=== PATIENT | male | born 1950 | race Caucasian/White ===

== ENCOUNTER → 2018-12-03 | Outpatient (CLI) | payer MEDICARE, BC ==
--- NOTE | 2018-12-03 10:02 | RADIOLOGY REPORT (SQ) ---
EXAM DESCRIPTION: ANKLE RIGHT COMPLETE COMPLETED DATE/TIME: 12/03/2018 9:44 am REASON FOR STUDY: PAIN IN RIGHT ANKLE AND JOINTS OF RIGHT FOOT COMPARISON: None. NUMBER OF VIEWS: Three views right ankle. LIMITATIONS: None. FINDINGS: No fracture, subluxation or dislocation or effusion. OTHER: Regional vascular calcifications and mild ankle DJD. IMPRESSION: No acute radiographic abnormality. TECHNICAL DOCUMENTATION: JOB ID: [id number] Reading location - IP/workstation name: [email or web address]
== END ==
LOC: OD 09:21
PROVIDERS: ATTEND Internal Medicine
DX: M25.571 Pain in right ankle and joints of right foot (principal)

== ENCOUNTER → 2019-02-18 | Outpatient (CLI) | payer MEDICARE, BC ==
[2019-02-18 15:38] LABS: ABSOLUTE LYMPHOCYTES (AUTO) 0.9 10^3/uL (0.5-4.7); ABSOLUTE MONOCYTES (AUTO) 0.5 10^3/uL (0.1-1.4); ABSOLUTE NEUT (AUTO) 6.8 10^3/uL (1.7-8.2); BASOPHILS % (AUTO) 0.4 % (0-2); EOSINOPHILS % (AUTO) 0.4 % (0-6); HEMATOCRIT 30.5 % (37.9-51.0); HEMOGLOBIN 10.4 g/dL (13.5-17.0); LYMPHOCYTES % (AUTO) 11.3 % (13-45); MEAN CORPUSCULAR HEMOGLOBIN 29.3 pg (27.0-33.4); MEAN CORPUSCULAR VOLUME 86 fl (80-97); MONOCYTES % (AUTO) 6.4 % (3-13); PLATELET COUNT 215 10^3/uL (150-450); RED BLOOD COUNT 3.53 10^6/uL (4.35-5.55); RED CELL DISTRIBUTION WIDTH 13.9 % (11.5-14.0); SEGMENTED NEUTROPHILS % (AUTO) 81.5 % (42-78); TOTAL CELLS COUNTED % (AUTO) 100 %; WHITE BLOOD COUNT 8.3 10^3/uL (4.0-10.5)
[2019-02-18 15:53] LABS: APPEARANCE,URINE CLEAR; BILIRUBIN,URINE NEGATIVE (NEGATIVE); COLOR,URINE STRAW; GLUCOSE, URINE NEGATIVE (NEGATIVE); KETONES,URINE NEGATIVE (NEGATIVE); LEUKOCYTE ESTERASE,URINE SMALL (NEGATIVE); NITRITE,URINE NEGATIVE (NEGATIVE); PROTEIN,URINE NEGATIVE (NEGATIVE); URINE SPECIFIC GRAVITY 1.005; UROBILINOGEN,URINE NEGATIVE mg/dL (<2.0)
[2019-02-18 15:58] LABS: IRON(TIBC) 46.2 ug/dL (49-181)
[2019-02-18 16:01] LABS: ALANINE AMINOTRANSFERASE 21 U/L (21-72); ALBUMIN 3.3 g/dL (3.5-5.0); ALKALINE PHOSPHATASE 193 U/L (38-126); ASPARTATE AMINO TRANSFERASE 20 U/L (17-59); BILIRUBIN,DIRECT 0.3 mg/dL (0.0-0.4); BILIRUBIN,TOTAL 0.3 mg/dL (0.2-1.3); BLOOD UREA NITROGEN 77 mg/dL (7-20); CALCIUM 8.1 mg/dL (8.4-10.2); GLUCOSE 106 mg/dL (75-110); PHOSPHORUS 8.3 mg/dL (2.5-4.5); POTASSIUM 3.9 mmol/L (3.6-5.0); TOTAL PROTEIN 5.8 g/dL (6.3-8.2)
[2019-02-18 16:05] LABS: CARBON DIOXIDE 16 mmol/L (22-30); CHLORIDE 91 mmol/L (98-107); SODIUM 126.8 mmol/L (137-145)
[2019-02-18 16:11] LABS: ANION GAP 20 (5-19)
[2019-02-22 14:37] LABS: A/G RATIO 1.2 (0.7-1.7); ALBUMIN 2 3.2 g/dL (2.9-4.4); ALPHA-2-GLOBULIN 2 0.9 g/dL (0.4-1.0); BETA GLOBULINS 0.9 g/dL (0.7-1.3); GAMMA GLOBULIN 0.6 g/dL (0.4-1.8); GLOBULIN TOTAL 2.7 g/dL (2.2-3.9); MONOCLONAL SPIKE Not Observed g/dL (Not Observ); PROTEIN TOTAL SERUM 5.9 g/dL (6.0-8.5)
== END ==
LOC: OD 15:04
PROVIDERS: ATTEND Internal Medicine Nephrology
DX: N17.9 Acute kidney failure, unspecified (principal); D64.9 Anemia, unspecified; R60.9 Edema, unspecified; I50.9 Heart failure, unspecified
CPT/HCPCS: 36415; 80053; 81001; 82728; 83540; 83550; 83735; 83970; 84100; 84165; 84443; 85025

== ENCOUNTER → 2019-02-23 | Outpatient (CLI) | payer MEDICARE, BC ==
--- NOTE | 2019-02-23 12:54 | RADIOLOGY REPORT (SQ) ---
EXAM DESCRIPTION: U/S RETROPERITON (RENAL/AORTA) COMPLETED DATE/TIME: 02/23/2019 11:58 am REASON FOR STUDY: ACUTE KIDNEY FAILURE, UNSPECIFIED (N17.9) HTN (I10) N17.9 ACUTE KIDNEY FAILURE, U NSPECIFIED COMPARISON: 04/18/2012 TECHNIQUE: Dynamic and static grayscale images acquired of the kidneys and bladder and recorded on P ACS. Additional selected color Doppler and spectral images recorded. LIMITATIONS: None. FINDINGS: RIGHT KIDNEY: 12.4 cm. Mild hydronephrosis. No masses. No calcifications. LEFT KIDNEY: 11.7 cm. Mild hydronephrosis. No masses. No calcifications. BLADDER: [place] catheter is in place. OTHER FINDINGS: No other significant finding. IMPRESSION: Mild bilateral hydronephrosis. TECHNICAL DOCUMENTATION: JOB ID: [id number] [employer]- All Rights Reserved Reading location - IP/workstation name: [email or web address]
== END ==
LOC: RAD 11:04
PROVIDERS: ATTEND Internal Medicine Nephrology
DX: N17.9 Acute kidney failure, unspecified (principal); N13.30 Unspecified hydronephrosis
CPT/HCPCS: 76770

== ENCOUNTER → 2019-04-19 | Outpatient (CLI) | payer MEDICARE, BC ==
--- NOTE | 2019-04-22 10:05 | RADIOLOGY REPORT (SQ) ---
EXAM DESCRIPTION: PET CT SKULL/THIGH COMPLETED DATE/TIME: 04/19/2019 10:19 pm REASON FOR STUDY: (C61)MALIGNANT NEOPLASM OF PROSTATE C61 MALIGNANT NEOPLASM OF PROSTATE COMPARISON: None. RADIONUCLIDE AND DOSE: 11.82 mCi F18 FDG The route of agent administration: Intravenous FASTING BLOOD SUGAR: 106 mg/dl CONTRAST TYPE AND DOSE: No CT contrast given. TECHNIQUE: Blood glucose level was verified. Above dose of FDG was injected intravenously. 2-D seg mented attenuation correction images were obtained from the base of the skull to the midthighs. Nonc ontrast CT images were obtained for attenuation correction and fusion with emission images. CT image s were performed without oral or intravenous contrast and are not sensitive for parenchymal lesions. A series of overlapping emission PET images were obtained. Images reviewed and manipulated at [facility] work station by the radiologist. Images stored on PACS. LIMITATIONS: None. FINDINGS: HEAD AND NECK: No areas of abnormal metabolic activity in the soft tissues of the head and neck. CHEST: SUV is greater than 6 consistent with neoplasm. ABDOMEN AND PELVIS: No areas of abnormal metabolic activity in the abdomen or pelvis. Expected physi ologic activity is present in the genitourinary system and bowel. PROXIMAL LOWER EXTREMITIES: No areas of abnormal metabolic activity in the soft tissues of the lower extremities. BONES: There is abnormal uptake in the right and left iliac crest. SUV is as high as 11. There is a bnormal uptake in both right and left pubic bones with SUV as high as 8.5. There is uptake in the po sterior aspect of the 3rd thoracic vertebral body. SUV is measured 3.5. Metastatic disease is suspe cted. ADDITIONAL CT FINDINGS: No additional significant findings on the noncontrast CT images. OTHER: No other significant findings. IMPRESSION: Bony metastatic disease as described. No abnormal soft tissue activity. TECHNICAL DOCUMENTATION: JOB ID: [id number] [employer]- All Rights Reserved Reading location - IP/workstation name: [email or web address]
== END ==
LOC: RAD 18:43
PROVIDERS: ATTEND Internal Medicine Medical Oncology
DX: C61 Malignant neoplasm of prostate (principal)
CPT/HCPCS: 78815; A9552

== ENCOUNTER → 2019-09-24 | Outpatient (CLI) | payer MEDICARE, BC ==
[2019-09-24 12:46] LABS: ANION GAP 16 (5-19); BLOOD UREA NITROGEN 35 mg/dL (7-20); CALCIUM 9.3 mg/dL (8.4-10.2); CARBON DIOXIDE 23 mmol/L (22-30); CHLORIDE 101 mmol/L (98-107); GLUCOSE 119 mg/dL (75-110); POTASSIUM 4.7 mmol/L (3.6-5.0); URIC ACID 6.1 mg/dL (3.5-8.5)
== END ==
LOC: OD 11:41
PROVIDERS: ATTEND Internal Medicine
DX: N18.3 Chronic kidney disease, stage 3 (moderate) (principal); M10.9 Gout, unspecified
CPT/HCPCS: 36415; 80048; 84550

== ENCOUNTER 2019-10-02 15:29 | Emergency (ER) | payer MEDICARE, BC ==
--- NOTE | 2019-10-02 15:41 | ER Document Report ---
ED Medical Screen (RME) - General Chief Complaint: Leg Injury Stated Complaint: LEFT LEG/ANKLE PAIN SWELLING Time Seen by Provider: 10/02/19 15:37 Primary Care Provider: KWAME RYAN MD [Primary Care Provider] - Follow up as needed TRAVEL OUTSIDE OF THE [place] IN LAST 30 DAYS: No - HPI Notes: 10/02/19 15:40 Patient is a 68-year-old male with a history of prostate cancer with metastasis presents from radiology for evaluation here in the emergency department. Patient was told that he had some fractures to his tib-fib left leg that occurred when he was walking with a walker. The images are not read, but I did review them and it does show pathological fractures. Dr. Salinas wanted him evaluated here with possible consult with orthopedics to come up with a game plan. No fever, chest pain, abdominal pain. I have treated and performed a rapid initial assessment of this patient. A comprehensive ED assessment and evaluation of the patient, analysis of test results and completion of medical decision making process will be conducted by additional ED providers. PHYSICAL EXAMINATION: GENERAL: Well-appearing, well-nourished and in no acute distress. A&Ox4. Answers questions appropriately. Left lower leg: N/V intact distal. - Related Data Allergies/Adverse Reactions: Heparin Analogues [Heparin Agents] Allergy (Verified 10/02/19 15:35) unsure Past Medical History - Past Medical History Cardiac Medical History: Reports: Hx Coronary Artery Disease, Hx Heart Attack - x3, Hx Hypertension Pulmonary Medical History: Denies: Hx Asthma, Hx Bronchitis, Hx COPD, Hx Pneumonia Neurological Medical History: Denies: Hx Cerebrovascular Accident, Hx Seizures GI Medical History: Denies: Hx Hepatitis, Hx Hiatal Hernia, Hx Ulcer Musculoskeltal Medical History: Reports Hx Arthritis Infectious Medical History: Denies: Hx Hepatitis Past Surgical History: Reports: Hx Pacemaker. Denies: Hx Open Heart Surgery - Immunizations Hx Diphtheria, Pertussis, Tetanus Vaccination: Yes Physical Exam - Vital signs Vitals: Temp Pulse Resp BP Pulse Ox 98.6 F 60 18 133/51 H 100 10/02/19 15:34 10/02/19 15:34 10/02/19 15:34 10/02/19 15:34 10/02/19 15:34 Course - Vital Signs Vital signs: Temp Pulse Resp BP Pulse Ox 98.6 F 60 18 133/51 H 100 10/02/19 15:34 10/02/19 15:34 10/02/19 15:34 10/02/19 15:34 10/02/19 15:34 Doctor's Discharge - Discharge Referrals: KWAME RYAN MD [Primary Care Provider] - Follow up as needed
[2019-10-02 19:06] VITALS: BP 158/62
--- NOTE | 2019-10-12 15:41 | ER Document Report ---
Entered by ELMA NICHOLSON SCRIBE 10/02/19 1723 Acting as scribe for:ASHLY HERZOG IV, MD ED Extremity Problem, Lower - General Chief Complaint: Leg Injury Stated Complaint: LEFT LEG/ANKLE PAIN SWELLING Time Seen by Provider: 10/02/19 15:37 Primary Care Provider: KWAME RYAN MD [Primary Care Provider] - Follow up as needed ELIO SALINAS MD [ACTIVE STAFF] - 10/05/19 NOHEMY DURAN JR, DO [ACTIVE PROVISIONAL STAFF] - 10/05/19 (CALL TO SCHEDULE FOLLOW UP APPOINTMENT ON 10/05/2019) Information source: Patient, [facility] Records Notes: This 68 year old male patient with known prostate cancer and metastasis to bones in the pelvis and left lower extremity presents to the emergency today with complains of left lower extremity pain. Patient was walking out of a diner and he "heard a pop and felt a crack sensation" in his left lower extremity. Patient had outpatient x-rays of the loft lower extremity and his oncologist saw these films and instructed him to come to the ED for concern of pathologic tib/fib fracture. TRAVEL OUTSIDE OF THE [place] IN LAST 30 DAYS: No - Related Data Allergies/Adverse Reactions: Heparin Analogues [Heparin Agents] Allergy (Verified 10/02/19 15:35) unsure Past Medical History - General Information source: Patient - Social History Smoking Status: Smoker,Current Status Unk Frequency of alcohol use: None Drug Abuse: None Lives with: Family Family History: Reviewed & Not Pertinent Patient has suicidal ideation: No Patient has homicidal ideation: No - Past Medical History Cardiac Medical History: Reports: Hx Coronary Artery Disease, Hx Heart Attack - x3, Hx Hypertension Malignancy Medical History: Reports Hx Pancreatic Cancer Musculoskeletal Medical History: Reports Hx Arthritis Past Surgical History: Reports: Hx Pacemaker - Immunizations Hx Diphtheria, Pertussis, Tetanus Vaccination: Yes Review of Systems - Review of Systems Constitutional: No symptoms reported EENT: No symptoms reported Cardiovascular: No symptoms reported Respiratory: No symptoms reported Gastrointestinal: No symptoms reported Genitourinary: No symptoms reported Male Genitourinary: No symptoms reported Musculoskeletal: See HPI, Joint pain - LLE, Ankle swelling Skin: No symptoms reported Hematologic/Lymphatic: No symptoms reported Neurological/Psychological: No symptoms reported -: Yes All other systems reviewed and negative Physical Exam - Vital signs Vitals: Temp Pulse Resp BP Pulse Ox 98.6 F 60 18 133/51 H 100 10/02/19 15:34 10/02/19 15:34 10/02/19 15:34 10/02/19 15:34 10/02/19 15:34 Course - Vital Signs Vital signs: Temp Pulse Resp BP Pulse Ox 97.8 F 59 L 16 158/62 H 100 10/02/19 18:46 10/02/19 18:46 10/02/19 18:46 10/02/19 18:46 10/02/19 18:46 - Diagnostic Test Radiology reviewed: Reports reviewed - Consults DR. MICHAEL DURAN Time consulted: 17:33 - ORTHOPEDIST Reason for consultation: 10/02/19 17:58 LEFT DISTAL TIBIA AND FIBULA FX Consulted provider: follow-up in office dr. SALINAS Time consulted: 17:34 - pt's oncologist Reason for consultation: 10/02/19 18:01 Follow-up with Dr. Salinas about orthopedists decision to manage leg fracture. Consulted provider: follow-up in office Discharge - Discharge Clinical Impression: Closed fracture of left distal tibia Qualifiers: Encounter type: initial encounter Fracture morphology: unspecified fracture morphology Qualified Code(s): S82.302A - Unspecified fracture of lower end of left tibia, initial encounter for closed fracture Closed fracture of left distal fibula Qualifiers: Encounter type: initial encounter Fracture morphology: unspecified fracture morphology Qualified Code(s): S82.832A - Other fracture of upper and lower end of left fibula, initial encounter for closed fracture Condition: Good Disposition: HOME, SELF-CARE Additional Instructions: Return to the Emergency Department without delay if any worse. Fracture You have a fracture. The typical broken bone requires only protection and sufficient time for healing. "Setting" is necessary only if the bones are crooked or out of position. The physician will re-assess you periodically to make certain that the bone heals without complications. It's important that you follow the instructions given you. The initial treatment is immobilization, elevation of the injury, and cold packs. Not all fractures require a cast. Depending on the location and type of fracture, immobilization may consist of a splint, cast, sling, bulky dressing, o r simply rest. The length of time required for healing depends on the location and type of fracture, and on the age of the patient. The treatment plan the physician has outlined for you is customized to your fracture and health condition. Call the doctor or return at once if pain becomes severe, or if severe swelling or numbness develop. HOME CARE INSTRUCTIONS & INFORMATION: Thank you for choosing us for your medical needs. We hope you're satisfied with the care you received. After you leave, you must properly care for your problem and, at the same time, observe its progress. Any condition can change. Some illnesses can change rapidly over hours or days. If your condition worsens, return to the Emergency Department or see your physician promptly. ABOUT YOUR X-RAYS AND EKG'S: If you had an EKG or X-rays taken, they have been read by the Emergency Physician. The X-rays and EKG's will also be read by a Radiologist or Production Assembly Supervisor within 24 hours. If discrepancies are noted, you will be notified by telephone. Please be certain the ED has a correct telephone number & address where you can be reached. Also, realize that some fractures or abnormalities do not show up on initial X-rays. If your symptoms continue, see your physician. ABOUT YOUR LABORATORY TEST: If you had laboratory tests, the results have been reviewed by the Emergency Physician. Some test results (for example cultures) may not be available for several days. You will be contacted if any test result shows you need additional treatment. Please be certain the ED has a correct telephone number and address where you can be reached. ABOUT YOUR MEDICATIONS: You will receive instructions on how to take your medicine on the prescription label you receive. Additional information may be p rovided by the Pharmacy. If you have questions afterwards, call the ED for clarification or further instructions. Some prescribed medications may cause drowsiness. Do not perform tasks such as driving a car or operating machinery without consulting your Pharmacist. If you feel you need a refill of pain medication, your condition will need re-evaluation. Please do not call for a refill of any medication. ABOUT YOUR SIGNATURE: Signature of this document acknowledges to followin. Understanding that you received emergency treatment and that you may be released before al medical problems are known or treated. Please be certain the ED has a correct phone number & address where you can be reached. 2. Acknowledgement that you will arrange for follow-up care as recommended. 3. Authorization for the Emergency Physician to provide information to your follow-up Physician in order to maximize your care. AT ANY TIME, IF YOUR SYMPTOMS CHANGE SIGNIFICANTLY OR WORSEN OR YOU DEVELOP NEW SYMPTOMS, RETURN TO THE EMERGENCY DEPARTMENT IMMEDIATELY FOR RE-EVALUATION. OUR GOAL IS TO PROVIDE EXCELLENT MEDICAL CARE! WE HOPE THAT WE HAVE MET YOUR EXPECTATIONS DURING YOUR EMERGENCY DEPARTMENT VISIT AND THAT YOU FEEL YOU HAVE RECEIVED EXCELLENT CARE! Prescriptions: Wheelchair 1 each MC DAILY #1 each Referrals: KWAME RYAN MD [Primary Care Provider] - Follow up as needed NOHEMY DURAN JR, DO [ACTIVE PROVISIONAL STAFF] - 10/05/19 (CALL TO SCHEDULE FOLLOW UP APPOINTMENT ON 10/05/2019) ELIO SALINAS MD [ACTIVE STAFF] - 10/05/19 I personally performed the services described in the documentation, reviewed and edited the documentation which was dictated to the scribe in my presence, and it accurately records my words and actions.
== END 2019-10-02 19:06 | disposition home or self-care (01) ==
LOC: ER 15:29
DX: S82.302A Unspecified fracture of lower end of left tibia, initial encounter for closed fracture (principal); S82.832A Other fracture of upper and lower end of left fibula, initial encounter for closed fracture; X58.XXXA Exposure to other specified factors, initial encounter; I25.10 Atherosclerotic heart disease of native coronary artery without angina pectoris; I10 Essential (primary) hypertension; Z88.8 Allergy status to other drugs, medicaments and biological substances
CPT/HCPCS: 99283

== ENCOUNTER → 2019-10-02 | Outpatient (CLI) | payer MEDICARE, BC ==
--- NOTE | 2019-10-02 15:41 | RADIOLOGY REPORT (SQ) ---
EXAM DESCRIPTION: ANKLE LEFT COMPLETE COMPLETED DATE/TIME: 10/02/2019 3:16 pm REASON FOR STUDY: (M25.579)PAIN IN UNSPECIFIED ANKLE AND JOINTS OF UNSPECIFIED FOOT M25.579 PAIN IN UNSPECIFIED ANKLE AND JOINTS OF UNSPECIFIED COMPARISON: None. NUMBER OF VIEWS: Three views. TECHNIQUE: AP, lateral, and oblique radiographic images acquired of the left ankle. LIMITATIONS: None. FINDINGS: MINERALIZATION: Normal. BONES: Permeative appearance of the distal tibia and fibula with an incomplete fracture of the distal fibular diaphysis and a comminuted extra-articular fracture of the distal tibia. The ankle mortise and talar dome are intact. JOINTS: No effusions. SOFT TISSUES: Soft tissue swelling and vascular calcifications. OTHER: No other significant finding. IMPRESSION: Permeative appearance of the distal tibia and fibula with an incomplete fracture of the distal fibular diaphysis and a comminuted extra-articular fracture of the distal tibia. TECHNICAL DOCUMENTATION: JOB ID: [id number] [employer]- All Rights Reserved Reading location - IP/workstation name: [email or web address]
== END ==
LOC: RAD 14:57
PROVIDERS: ATTEND Internal Medicine
DX: S82.392A Other fracture of lower end of left tibia, initial encounter for closed fracture (principal); S82.832A Other fracture of upper and lower end of left fibula, initial encounter for closed fracture; X58.XXXA Exposure to other specified factors, initial encounter; M25.572 Pain in left ankle and joints of left foot

== ENCOUNTER → 2019-10-14 | Outpatient (CLI) | payer MEDICARE, BC ==
[2019-10-14 12:17] LABS: ABSOLUTE BASOPHILS # (AUTO) 0.1 10^3/uL (0.0-0.2); ABSOLUTE EOSINOPHILS # (AUTO) 0.1 10^3/uL (0.0-0.6); ABSOLUTE LYMPHOCYTES (AUTO) 1.3 10^3/uL (0.5-4.7); ABSOLUTE MONOCYTES (AUTO) 0.8 10^3/uL (0.1-1.4); ABSOLUTE NEUT (AUTO) 8.1 10^3/uL (1.7-8.2); BASOPHILS % (AUTO) 0.7 % (0-2); EOSINOPHILS % (AUTO) 0.6 % (0-6); HEMATOCRIT 25.6 % (37.9-51.0); HEMOGLOBIN 8.4 g/dL (13.5-17.0); LYMPHOCYTES % (AUTO) 12.5 % (13-45); MEAN CORPUSCULAR HEMOGLOBIN 27.3 pg (27.0-33.4); MEAN CORPUSCULAR HGB CONC 32.6 g/dL (32.0-36.0); MEAN CORPUSCULAR VOLUME 84 fl (80-97); MONOCYTES % (AUTO) 7.3 % (3-13); PLATELET COUNT 325 10^3/uL (150-450); RED BLOOD COUNT 3.06 10^6/uL (4.35-5.55); RED CELL DISTRIBUTION WIDTH 16.7 % (11.5-14.0); SEGMENTED NEUTROPHILS % (AUTO) 78.9 % (42-78); TOTAL CELLS COUNTED % (AUTO) 100 %; WHITE BLOOD COUNT 10.2 10^3/uL (4.0-10.5)
[2019-10-14 12:55] LABS: ALBUMIN 3.5 g/dL (3.5-5.0); ALKALINE PHOSPHATASE 321 U/L (38-126); ANION GAP 12 (5-19); ASPARTATE AMINO TRANSFERASE 46 U/L (17-59); BILIRUBIN,DIRECT 0.4 mg/dL (0.0-0.4); BILIRUBIN,TOTAL 0.4 mg/dL (0.2-1.3); BLOOD UREA NITROGEN 32 mg/dL (7-20); CALCIUM 9.6 mg/dL (8.4-10.2); CARBON DIOXIDE 23 mmol/L (22-30); CHLORIDE 103 mmol/L (98-107); GLUCOSE 93 mg/dL (75-110); POTASSIUM 5.6 mmol/L (3.6-5.0); TOTAL PROTEIN 6.8 g/dL (6.3-8.2)
== END ==
LOC: LAB 11:36
PROVIDERS: ATTEND Orthopaedic Surgery
DX: I10 Essential (primary) hypertension (principal); Z11.2 Encounter for screening for other bacterial diseases
CPT/HCPCS: 36415; 80053; 85025; 87070

== ENCOUNTER 2019-10-25 10:04 | Inpatient (IN) | payer MEDICARE, BC ==
[2019-10-25 10:57] LABS: HEMATOCRIT 25.4 % (37.9-51.0); HEMOGLOBIN 8.2 g/dL (13.5-17.0); MEAN CORPUSCULAR HEMOGLOBIN 27.3 pg (27.0-33.4); MEAN CORPUSCULAR HGB CONC 32.1 g/dL (32.0-36.0); MEAN CORPUSCULAR VOLUME 85 fl (80-97); PLATELET COUNT 302 10^3/uL (150-450); RED BLOOD COUNT 2.99 10^6/uL (4.35-5.55); RED CELL DISTRIBUTION WIDTH 17.5 % (11.5-14.0)
[2019-10-25 11:02] LABS: ALBUMIN 3.1 g/dL (3.5-5.0); ALKALINE PHOSPHATASE 241 U/L (38-126); ANION GAP 11 (5-19); ASPARTATE AMINO TRANSFERASE 37 U/L (17-59); BILIRUBIN,DIRECT 0.4 mg/dL (0.0-0.4); BILIRUBIN,TOTAL 0.4 mg/dL (0.2-1.3); BLOOD UREA NITROGEN 37 mg/dL (7-20); CARBON DIOXIDE 20 mmol/L (22-30); CHLORIDE 100 mmol/L (98-107); GLUCOSE 267 mg/dL (75-110); TOTAL PROTEIN 6.3 g/dL (6.3-8.2)
--- NOTE | 2019-10-25 11:04 | ER Document Report ---
ED General - General Chief Complaint: Decreased Appetite Stated Complaint: POSSIBLE DEHYDRATION Time Seen by Provider: 10/25/19 11:01 Mode of Arrival: Medic Information source: Patient, Relative Cannot obtain history due to: Altered mental status TRAVEL OUTSIDE OF THE [place] IN LAST 30 DAYS: No - HPI Onset: Other - over the last 1-2 days Onset/Duration: Gradual Quality of pain: No pain Severity: Moderate Pain Level: Denies Associated symptoms: Weakness, Other - decreased PO intake, altered mental status Exacerbated by: Denies Relieved by: Denies Similar symptoms previously: No Recently seen / treated by doctor: Yes - by his PCP Notes: 68 year old male with a history of Metastatic Prostate Cancer, HTN, HLD, Pacemaker/Defibrillator brought to the ER by EMS for altered mental status and concern of dehydration. The patient's family says the patient has been confused and not acting himself for the last 1-2 days. The patient says he has not been eating or drinking much since he has no appetite. The patient self caths due to his metastatic prostate cancer. - Related Data Allergies/Adverse Reactions: Heparin Analogues [Heparin Agents] Allergy (Verified 10/25/19 15:03) unsure meperidine [From Demerol] Allergy (Verified 10/25/19 15:03) Home Medications: Simvastatin 20mg QDay. Escitalopram 10mg QDay. Metoprolol ER 100 mg QDay. Docusate Sodium 100 mg QDay. Following medications being held for surgery. Last dose 10/23/19. CBD Capsule 750 mg QDay. Clopidogrel 75mg QDay Past Medical History - General Information source: Patient, Relative - Social History Smoking Status: Unknown if Ever Smoked Frequency of alcohol use: None Drug Abuse: None Lives with: Spouse/Significant other Family History: Reviewed & Not Pertinent Patient has suicidal ideation: No Patient has homicidal ideation: No - Past Medical History Cardiac Medical History: Reports: Hx Coronary Artery Disease, Hx Heart Attack - x3, Hx Hypertension Pulmonary Medical History: Denies: Hx Asthma, Hx Bronchitis, Hx COPD, Hx Pneumonia Neurological Medical History: Denies: Hx Cerebrovascular Accident, Hx Seizures Malignancy Medical History: Reports Hx Prostate Cancer GI Medical History: Denies: Hx Hepatitis, Hx Hiatal Hernia, Hx Ulcer Musculoskeletal Medical History: Reports Hx Arthritis Infectious Medical History: Denies: Hx Hepatitis Past Surgical History: Reports: Hx Pacemaker. Denies: Hx Open Heart Surgery - Immunizations Hx Diphtheria, Pertussis, Tetanus Vaccination: Yes Physical Exam - Vital signs Vitals: Resp 18 10/25/19 10:15 - Notes Notes: GENERAL: Well-appearing, well-nourished and in no acute distress. HEAD: Atraumatic, normocephalic. EYES: Pupils equal round and reactive to light, extraocular movements intact, sclera anicteric, conjunctiva are normal. ENT: TMs normal, nares patent, oropharynx clear without exudates. Moist mucous membranes. NECK: Normal range of motion, supple without lymphadenopathy or JVD. LUNGS: Breath sounds clear to auscultation bilaterally and equal. No wheezes rales or rhonchi. HEART: Regular rate and rhythm without murmurs, rubs or gallops. ABDOMEN: Soft, nontender, normoactive bowel sounds. No guarding, no rebound. No masses appreciated. EXTREMITIES: Normal range of motion, no pitting or edema. No clubbing or cyanosis. NEUROLOGICAL: Cranial nerves II through XII grossly intact. Normal speech, normal gait. PSYCH: Normal mood, normal affect. SKIN: Warm, Dry, normal turgor, no rashes or lesions noted. Course - Re-evaluation Re-evalutation: 10/25/19 18:38 The patient was found to be septic due to a UTI, in acute renal failure with hyperkalemia, and dehydrated. Patient was treated with fluids, IV Rocephin, IV Calcium Gluconate, IV Sodium Bicarbonate, IV Insulin. The patient also has known heart failure and his BNP was up today with no priors for comparison. Patient admitted to a Tele Bed for further treatment and care. His volume status will likely be an issue since he is septic but also has heart failure with some pulmonary edema. Patient was given nebs in the ER as well. The patient had several tachycardic events in the ER which were likely due to dehydration and IVONNE. I did give one dose of Metoprolol IV since he missed all of his BP meds today since he has been at the hospital. - Vital Signs Vital signs: Temp Pulse Resp BP Pulse Ox 99.3 F 16 103/54 L 94 10/25/19 16:33 10/25/19 18:16 10/25/19 18:16 10/25/19 18:16 - Laboratory Result Diagrams: 10/25/19 10:14 10/25/19 10:14 Laboratory results interpreted by me: 10/25/19 10/25/19 10/25/19 10:14 10:14 10:14 WBC 13.0 H RBC 2.99 L Hgb 8.2 L Hct 25.4 L RDW 17.5 H Seg Neuts % (Manual) 91 H Lymphocytes % (Manual) 5 L Abs Neuts (Manual) 11.8 H Sodium 131.2 L Potassium 6.1 H* Carbon Dioxide 20 L BUN 37 H Creatinine 2.53 H Est GFR ( Amer) 31 L Est GFR (MDRD) Non-Af 25 L Glucose 267 H POC Glucose Calcium 6.9 L* Ionized Calcium Julius Magnesium 3.8 H Alkaline Phosphatase 241 H NT-Pro-B Natriuret Pep Albumin 3.1 L Urine Protein Urine Glucose (UA) Urine Blood Ur Leukocyte Esterase Urine Ascorbic Acid 10/25/19 10/25/19 10/25/19 10:14 11:42 11:55 WBC RBC Hgb Hct RDW Seg Neuts % (Manual) Lymphocytes % (Manual) Abs Neuts (Manual) Sodium Potassium Carbon Dioxide BUN Creatinine Est GFR ( Amer) Est GFR (MDRD) Non-Af Glucose POC Glucose Calcium Ionized Calcium Julius 0.98 L Magnesium Alkaline Phosphatase NT-Pro-B Natriuret Pep 4150 H Albumin Urine Protein 100 H Urine Glucose (UA) 50 H Urine Blood LARGE H Ur Leukocyte Esterase LARGE H Urine Ascorbic Acid 20 H 10/25/19 12:37 WBC RBC Hgb Hct RDW Seg Neuts % (Manual) Lymphocytes % (Manual) Abs Neuts (Manual) Sodium Potassium Carbon Dioxide BUN Creatinine Est GFR ( Amer) Est GFR (MDRD) Non-Af Glucose POC Glucose 214 H Calcium Ionized Calcium Julius Magnesium Alkaline Phosphatase NT-Pro-B Natriuret Pep Albumin Urine Protein Urine Glucose (UA) Urine Blood Ur Leukocyte Esterase Urine Ascorbic Acid - EKG Interpretation by Me Rate: Normal [place]/QRS: Left axis deviation Additional EKG results interpreted by me: 10/25/19 18:45 Atrial Sensed, Ventricular Paced Critical Care Note - Critical Care Note Total time excluding time spent on procedures (mins): 55 Discharge - Discharge Clinical Impression: Sepsis Qualifiers: Sepsis type: sepsis due to unspecified organism Sepsis acute organ dysfunction status: without acute organ dysfunction Qualified Code(s): A41.9 - Sepsis, unspecified organism UTI (urinary tract infection) Qualifiers: Urinary tract infection type: site unspecified Hematuria presence: with hematuria Qualified Code(s): N39.0 - Urinary tract infection, site not specified Acute kidney failure Qualifiers: Acute renal failure type: unspecified Qualified Code(s): N17.9 - Acute kidney failure, unspecified Condition: Serious Disposition: ADMITTED INPATIENT Admitting Provider: Seth (Hospitalist) Unit Admitted: [facility]
[2019-10-25 11:12] LABS: CALCIUM 6.9 mg/dL (8.4-10.2)
[2019-10-25 11:13] LABS: POTASSIUM 6.1 mmol/L (3.6-5.0)
[2019-10-25 11:15] LABS: ABSOLUTE LYMPHOCYTES# (MANUAL) 0.7 10^3/uL (0.5-4.7); ABSOLUTE MONOCYTES # (MANUAL) 0.5 10^3/uL (0.1-1.4); BASOPHILS % (MANUAL) 0 % (0-2); EOSINOPHILS % (MANUAL) 0 % (0-6); LYMPHOCYTES % (MANUAL) 5 % (13-45); MONOCYTES % (MANUAL) 4 % (3-13); SEGMENTED NEUTROPHILS % (MAN) 91 % (42-78); TOTAL CELLS COUNTED 100
[2019-10-25 11:18] LABS: ANISOCYTOSIS 1+; OVALOCYTES SLIGHT; PLATELET COMMENT ADEQUATE; PLATELET LARGE PRESENT; POIKILOCYTOSIS SLIGHT; POLYCHROMASIA SLIGHT
[2019-10-25] MEDS ORDERED: NORMAL SALINE 1000 ML 1,000 ML IV ONE ×2 (11:29→15:45)
[2019-10-25] MEDS ORDERED: CALCIUM GLUCONATE 1000 MG/10 ML INJ IV ONE ×2 (11:31→14:02)
[2019-10-25 12:21] LABS: APPEARANCE,URINE TURBID; BILIRUBIN,URINE NEGATIVE (NEGATIVE); COLOR,URINE AMBER; GLUCOSE, URINE 50 mg/dL (NEGATIVE); KETONES,URINE NEGATIVE (NEGATIVE); LEUKOCYTE ESTERASE,URINE LARGE (NEGATIVE); NITRITE,URINE NEGATIVE (NEGATIVE); PROTEIN,URINE 100 mg/dL (NEGATIVE); URINE SPECIFIC GRAVITY 1.011; UROBILINOGEN,URINE NEGATIVE mg/dL (<2.0)
[2019-10-25] MEDS ORDERED: INSULIN REG, HUMAN 100 UNIT/ML 3 ML VIAL (PYX) SUBCUT ONE (12:33)
[2019-10-25] MEDS ORDERED: SODIUM BICARBONATE 8.4% INJ 50 MEQ/50 ML DISP.SYRIN IV ONE (12:33)
[2019-10-25] MEDS ORDERED: ADENOSINE INJ/PF 6 MG/2 ML SDV IV ONE (12:39)
[2019-10-25] MEDS ORDERED: METOPROLOL TARTRATE PF/INJ 5 MG/5 ML SDV IV ONE ×2 (12:42)
[2019-10-25] MEDS ORDERED: CEFTRIAXONE INJ 1000 MG VIAL IV ONE (12:43)
[2019-10-25] MEDS ORDERED: ACETAMINOPHEN 325 MG TABLET PO ONE ×2 (12:46→15:45)
--- NOTE | 2019-10-25 13:36 | RADIOLOGY REPORT (SQ) ---
EXAM DESCRIPTION: CHEST SINGLE VIEW COMPLETED DATE/TIME: 10/25/2019 1:23 pm REASON FOR STUDY: Shortness of breath COMPARISON: 04/30/2010. EXAM PARAMETERS: NUMBER OF VIEWS: One view. TECHNIQUE: Single frontal radiographic view of the chest acquired. RADIATION DOSE: NA LIMITATIONS: None. FINDINGS: LUNGS AND PLEURA: Faint hazy appearance of both lungs. No large pleural effusion. MEDIASTINUM AND HILAR STRUCTURES: No masses. Contour normal. HEART AND VASCULAR STRUCTURES: Mild cardiomegaly. Mild vascular congestion. BONES: No acute findings. HARDWARE: Pacemaker. OTHER: No other significant finding. IMPRESSION: MILD CARDIOMEGALY WITH MILD VASCULAR CONGESTION. FAINT HAZY APPEARANCE OF BOTH LUNGS MA Y REPRESENT EARLY PULMONARY EDEMA. TECHNICAL DOCUMENTATION: JOB ID: [id number] [employer]- All Rights Reserved Reading location - IP/workstation name: [email or web address]
--- NOTE | 2019-10-25 13:53 | PDOC H&P ---
History of Present Illness Admission Date/PCP: 10/25/19 13:15 KWAME SANDOVAL MD History of Present Illness: MADI RAYMOND is a 68 year old male with past medical history of CAD, CHF stat us post pacemaker placement, hypertension, stage IV prostatic cancer diagnosed in January 2019, seen by Dr. Salinas as outpatient, obstructive uropathy due to complication of prostate cancer status post bilateral ureteral stent placement by Dr. Kruse at [facility], CKD seen by Dr. Hilton eradicator, PCP Dr. Sandoval. Patient lives at home with his family and is doing intermittent catheterization at home for his obstructive uropathy, used to have Dacosta but removed it to improve his quality of life, patient is alert oriented x2 however seems to be very weak and preferred for his family to provide history. As per daughter and were present at the room patient has being having low appetite and refusing to eat or drink for the last 3 days and has been complaining of generalized weakness and malaise, today was seen to be well but confused and patient was brought to ED. Denies any shortness of breath, chest pain, abdominal pain, nausea, vomiting, diarrhea when asked if he is in pain he points to the right flank. In ED he was found to have leukocytosis and noted to have a positive UA. Was started on fluid resuscitation and consulted hospitalist. Past Medical History Cardiac Medical History: Reports: Coronary Artery Disease, Myocardial Infarction - x3, Hypertension Pulmonary Medical History: Denies: Asthma, Bronchitis, Chronic Obstructive Pulmonary Disease (COPD), Pneumonia Neurological Medical History: Denies: Seizures Malignancy Medical History: Reports: Pancreatic Cancer GI Medical History: Denies: Hepatitis, Hiatal Hernia Musculoskeltal Medical History: Reports: Arthritis Hematology: Reports: Anemia Denies: Sickle Cell Disease Past Surgical History Past Surgical History: Reports: Pacemaker Social History Lives with: Spouse/Significant other Smoking Status: Unknown if Ever Smoked Family History Family History: Reviewed & Not Pertinent Parental Family History Reviewed: Yes Children Family History Reviewed: Yes Sibling(s) Family History Reviewed.: Yes Medication/Allergy Allergies/Adverse Reactions: Heparin Analogues [Heparin Agents] Allergy (Verified 10/02/19 15:35) unsure Review of Systems Review of Systems: as per hpi Physical Exam Vital Signs: Temp Pulse Resp BP Pulse Ox 99.4 F 23 H 150/57 H 99 10/25/19 10:40 10/25/19 11:00 10/25/19 11:01 10/25/19 12:00 Intake & Output 10/24/19 10/25/19 10/26/19 06:59 06:59 06:59 Intake Total 1000 Balance 1000 Weight 76.7 kg General appearance: PRESENT: mild distress Head exam: PRESENT: atraumatic, normocephalic Neck exam: ABSENT: carotid bruit, JVD, lymphadenopathy, thyromegaly Respiratory exam: PRESENT: clear to auscultation riky. ABSENT: rales, rhonchi, wheezes Cardiovascular exam: PRESENT: RRR, tachycardia. ABSENT: diastolic murmur, rubs, systolic murmur GI/Abdominal exam: PRESENT: normal bowel sounds, soft. ABSENT: distended, guarding, mass, organolmegaly, rebound, tenderness Neurological exam: PRESENT: alert, awake, oriented to person, oriented to place, oriented to time, oriented to situation, CN II-XII grossly intact. ABSENT: motor sensory deficit Results Laboratory Results: 10/25/19 10:14 10/25/19 10:14 10/25/19 10/25/19 10/25/19 10:14 10:14 10:14 WBC 13.0 H RBC 2.99 L Hgb 8.2 L Hct 25.4 L MCV 85 MCH 27.3 MCHC 32.1 RDW 17.5 H Plt Count 302 Seg Neutrophils % Not Reportable Sodium 131.2 L Potassium 6.1 H* Chloride 100 Carbon Dioxide 20 L Anion Gap 11 BUN 37 H Creatinine 2.53 H Est GFR ( Amer) 31 L Glucose 267 H Lactic Acid Calcium 6.9 L* Ionized Calcium Julius Magnesium 3.8 H Total Bilirubin 0.4 AST 37 Alkaline Phosphatase 241 H Total Protein 6.3 Albumin 3.1 L Urine Color Urine Appearance Urine pH Ur Specific [place] Urine Protein Urine Glucose (UA) Urine Ketones Urine Blood Urine Nitrite Ur Leukocyte Esterase Urine WBC (Auto) Urine RBC (Auto) 10/25/19 10/25/19 10/25/19 11:42 11:42 11:55 WBC RBC Hgb Hct MCV MCH MCHC RDW Plt Count Seg Neutrophils % Sodium Potassium Chloride Carbon Dioxide Anion Gap BUN Creatinine Est GFR ( Amer) Glucose Lactic Acid 1.4 Calcium Ionized Calcium Julius 0.98 L Magnesium Total Bilirubin AST Alkaline Phosphatase Total Protein Albumin Urine Color CARLEE Urine Appearance TURBID Urine pH 7.0 Ur Specific [place] 1.011 Urine Protein 100 H Urine Glucose (UA) 50 H Urine Ketones NEGATIVE Urine Blood LARGE H Urine Nitrite NEGATIVE Ur Leukocyte Esterase LARGE H Urine WBC (Auto) >182 Urine RBC (Auto) >182 Impressions: Chest X-Ray 10/25/19 13:15 IMPRESSION: MILD CARDIOMEGALY WITH MILD VASCULAR CONGESTION. FAINT HAZY APPEARANCE OF BOTH LUNGS MAY REPRESENT EARLY PULMONARY EDEMA. Assessment and Plan - Diagnosis (1) UTI (urinary tract infection) Qualifiers: Urinary tract infection type: site unspecified Hematuria presence: with hematuria Qualified Code(s): N39.0 - Urinary tract infection, site not sp ecified; R31.9 - Hematuria, unspecified Is this a current diagnosis for this admission?: Yes (2) Acute kidney injury superimposed on CKD Is this a current diagnosis for this admission?: Yes Plan: Combined pre-and post renal. Patient has been having low p.o. intake due to anorexia. Cautious volume resuscitation guided by volume status.. Monitor electrolytes and replace as needed. CT abdomen pelvis to check patency of the ureteral stents. Daily BMP. (3) Obstructive uropathy Is this a current diagnosis for this admission?: Yes Plan: Complicated UTI history of obstructive uropathy due to metastatic prostate cancer status post bilateral renal stent placement. Managed by Dr. Kruse urologist at [facility]. We will get CT abdomen and pelvis to check for patency. We will place Dacosta cath. Continue Dacosta care. Outpatient urology follow-up. (4) Prostate cancer Is this a current diagnosis for this admission?: Yes Plan: Stage IV prostate cancer. On chemo and radiation managed by Dr. Salinas as outpatient. (5) CAD (coronary artery disease) Qualifiers: Coronary Disease-Associated Artery/Lesion type: [place] artery Is this a current diagnosis for this admission?: Yes Plan: Denies any anginal symptoms. Restart home meds. Adjust meds as needed. Outpatient PCP and cardiology follow-up. (6) CHF (congestive heart failure) Qualifiers: Heart failure type: combined systolic and diastolic Heart failure chronicity: chronic Qualified Code(s): I50.42 - Chronic combined systolic (congestive) and diastolic (congestive) heart failure Is this a current diagnosis for this admission?: Yes Plan: Does not seem to be acutely exacerbated. Patient presenting with dehydration. Cardiac diet, monitor in and out, restart home meds. (7) Anorexia Is this a current diagnosis for this admission?: Yes Plan: Likely combination of IVONNE, metastatic cancer and chemotherapy. Encourage p.o. intake, will start on appetite stimulant. Monitor electrolytes and volume status. (8) Hypertension Is this a current diagnosis for this admission?: Yes Plan: Restart home meds. Adjust meds as needed. PRN IV hydralazine metoprolol. (9) Hyperkalemia Is this a current diagnosis for this admission?: Yes Plan: Likely due to IVONNE for CKD. Hyperkalemia protocol. No acute EKG changes. (10) Hypocalcemia Is this a current diagnosis for this admission?: Yes Plan: Replace as needed.
[2019-10-25] MEDS ORDERED: NORMAL SALINE 1000 ML 1,000 ML IV PRN (13:57)
[2019-10-25] MEDS ORDERED: ONDANSETRON HCL INJ/PF 4 MG/2 ML SDV IV PRN (13:57)
[2019-10-25] MEDS ORDERED: PROMETHAZINE HCL INJ 25 MG/1 ML VIAL IV PRN (13:57)
[2019-10-25] MEDS ORDERED: ALBUTEROL SULFATE 0.083% NEB 2.5 MG/3 ML AMPUL NEB PRN (13:57)
[2019-10-25] MEDS ORDERED: IPRATROPIUM/ALBUTEROL 0.5-2.5 MG/3 ML AMPUL NEB ONE (14:00)
[2019-10-25] MEDS ORDERED: HYDRALAZINE HCL INJ/PF 20 MG/1 ML SDV IV PRN (14:03)
[2019-10-25] MEDS ORDERED: METOPROLOL TARTRATE PF/INJ 5 MG/5 ML SDV IV PRN (14:03)
[2019-10-25] MEDS ORDERED: DEXTROSE 50%-WATER 25 GM/50 ML DISP.SYRIN IV PRN ×2 (14:04)
[2019-10-25] MEDS ORDERED: DEXTROSE 40% GEL 15 GM TUBE PO PRN ×2 (14:04)
[2019-10-25] MEDS ORDERED: OXYCODONE-ACETAMINOPHEN 5-325 MG TABLET PO PRN (14:04)
[2019-10-25] MEDS ORDERED: GLUCAGON,HUMAN RECOMB 1 MG INJ IM PRN (14:04)
[2019-10-25] MEDS ORDERED: SODIUM POLYSTYRENE SULFONATE 15 GM/60 ML PO ONE (14:45)
[2019-10-25] MEDS: CALCIUM GLUCONATE 1 GM/NS 50 ML RTU IV SCH ×2 (15:28→17:06)
[2019-10-25] MEDS: IPRATROPIUM/ALBUTEROL 0.5-2.5 MG/3 ML AMPUL NEB SCH ×2 (16:16→20:57)
[2019-10-25] MEDS: INSULIN LISPRO 100 UNIT/ML 3 ML VIAL SUBCUT SCH ×2 (16:17→21:48)
[2019-10-25 16:37] LABS: A TYPE INFLUENZA AG NEGATIVE (NEGATIVE); B INFLUENZA AG NEGATIVE (NEGATIVE)
[2019-10-25] MEDS ORDERED: DOPAMINE HCL/DEXTROSE 5%-WATER 800 MG/250 ML RTUINJ IV ONE (16:39)
[2019-10-25] MEDS ORDERED: RINGERS SOLUTION,LACTATED 1,000 ML IV ONE ×2 (16:40→18:20)
[2019-10-25] MEDS ORDERED: RINGERS SOLUTION,LACTATED 1,000 ML IV PRN ×2 (17:07→18:37)
[2019-10-25] MEDS ORDERED: DEXTROSE 5%-WATER 250 ML with PHENYLEPHRINE HCL 40 MG IV PRN ×2 (17:39)
[2019-10-25] MEDS: MEGESTROL ACETATE SUSP 400 MG/10 ML UDCUP PO SCH (17:46)
--- NOTE | 2019-10-25 17:51 | CRITICAL CARE ADMISSION REPORT ---
HPI Date:: 10/25/19 - Critical Care Attending Time:: 17:41 Reason for ICU Reason:: septic shock,complicated UTI, IVONNE HPI: Pt is a 68 yo man with metastatic prostate cancer who presents to the ED c/o a several day history of decreased oral intake. He has a h/o obstructive uropathy, s/p bilateral ureteral stents,and does intermittent self-catheterization. In the ED, he was found to be hypotensive with an SBP in the 70s. He was found to have a UTI, IVONNE, and hyperkalemia. He was treated for the hyperkalemia, given IVF, and started on ATBX. He was also started on dopamine. Upon my evaluation in the ED, he is tachycardic with a pulse in the 160s and has an SBP in the 120s on dopamine. He c/o nausea. His and children are at the bedside. - Diagnosis/Plan (1) Septic shock Is this a current diagnosis for this admission?: Yes (2) Complicated UTI (urinary tract infection) Is this a current diagnosis for this admission?: Yes (3) Prostate cancer Is this a current diagnosis for this admission?: Yes (4) Obstructive uropathy Is this a current diagnosis for this admission?: Yes (5) Acute kidney failure Qualifiers: Acute renal failure type: unspecified Qualified Code(s): N17.9 - Acute kidney failure, unspecified Is this a current diagnosis for this admission?: Yes Past Medical History Cardiac Medical History: Reports: Congestive Heart Failure, Coronary Artery Disease, Myocardial Infarction - x3, Hypertension Pulmonary Medical History: Denies: Asthma, Bronchitis, Chronic Obstructive Pulmonary Disease (COPD), P [place] Neurological Medical History: Denies: Seizures Malignancy Medical History: Reports: Pancreatic Cancer GI Medical History: Denies: Hepatitis, Hiatal Hernia Musculoskeltal Medical History: Reports: Arthritis Hematology: Reports: Anemia Denies: Sickle Cell Disease Past Surgical History Past Surgical History: Reports: Pacemaker Social/Family History - Social History Lives with: Spouse/Significant other Smoking Status: Unknown if Ever Smoked - Medication/Allergies Home Medications: Cannabidiol (Cbd) [Epidiolex] 750 mg PO DAILY 10/25/19 Clopidogrel Bisulfate [Plavix 75 mg Tablet] 75 mg PO DAILY 10/25/19 Docusate Sodium [Stool Softener] 100 mg PO DAILY 10/25/19 Escitalopram Oxalate [Lexapro 10 mg Tablet] 10 mg PO DAILY 10/25/19 Metoprolol Succinate [Toprol Xl] 100 mg PO DAILY 10/25/19 Oxycodone HCl [Oxy-Ir 5 mg Tablet] 10 mg PO Q4HP PRN 10/25/19 Oxycodone HCl [Oxycontin Sr 10 mg Tablet] 10 mg PO Q12 10/25/19 Simvastatin 20 mg PO DAILY 10/25/19 Allergies/Adverse Reactions: Heparin Analogues [Heparin Agents] Allergy (Verified 10/25/19 15:03) unsure meperidine [From Demerol] Allergy (Verified 10/25/19 15:03) Physical Exam Vital Signs: Temp Pulse Resp BP Pulse Ox 99.3 F 16 74/42 L 96 10/25/19 16:33 10/25/19 16:15 10/25/19 16:33 10/25/19 15:59 Intake & Output 10/24/19 10/25/19 10/26/19 06:59 06:59 06:59 Intake Total 2380 Output Total 250 Balance 2130 Weight 76.7 kg Weight/Height Weight 76.7 kg Height 5 ft 10 in General appearance: PRESENT: no acute distress, well-developed, well-nourished, other - ill-appearing, NAD Head exam: PRESENT: atraumatic, normocephalic Respiratory exam: PRESENT: clear to auscultation riky, unlabored Cardiovascular exam: PRESENT: tachycardia GI/Abdominal exam: PRESENT: soft Gentrourinary exam: PRESENT: indwelling catheter Extremities exam: PRESENT: other - no edema Neurological exam: PRESENT: alert, awake, CN II-XII grossly intact Laboratory/Radiographs Laboratory Results: 10/25/19 10:14 10/25/19 10:14 10/25/19 10/25/19 10/25/19 10:14 10:14 10:14 WBC 13.0 H RBC 2.99 L Hgb 8.2 L Hct 25.4 L MCV 85 MCH 27.3 MCHC 32.1 RDW 17.5 H Plt Count 302 Seg Neutrophils % Not Reportable Sodium 131.2 L Potassium 6.1 H* Chloride 100 Carbon Dioxide 20 L Anion Gap 11 BUN 37 H Creatinine 2.53 H Est GFR ( Amer) 31 L Glucose 267 H Lactic Acid Calcium 6.9 L* Ionized Calcium Julius Magnesium 3.8 H Total Bilirubin 0.4 AST 37 Alkaline Phosphatase 241 H Total Protein 6.3 Albumin 3.1 L Urine Color Urine Appearance Urine pH Ur Specific [place] Urine Protein Urine Glucose (UA) Urine Ketones Urine Blood Urine Nitrite Ur Leukocyte Esterase Urine WBC (Auto) Urine RBC (Auto) 10/25/19 10/25/19 10/25/19 11:42 11:42 11:55 WBC RBC Hgb Hct MCV MCH MCHC RDW Plt Count Seg Neutrophils % Sodium Potassium Chloride Carbon Dioxide Anion Gap BUN Creatinine Est GFR ( Amer) Glucose Lactic Acid 1.4 Calcium Ionized Calcium Julius 0.98 L Magnesium Total Bilirubin AST Alkaline Phosphatase Total Protein Albumin Urine Color CARLEE Urine Appearance TURBID Urine pH 7.0 Ur Specific [place] 1.011 Urine Protein 100 H Urine Glucose (UA) 50 H Urine Ketones NEGATIVE Urine Blood LARGE H Urine Nitrite NEGATIVE Ur Leukocyte Esterase LARGE H Urine WBC (Auto) >182 Urine RBC (Auto) >182 10/25/19 10:14 NT-Pro-B Natriuret Pep 4150 H Impressions: Chest X-Ray 10/25/19 13:15 IMPRESSION: MILD CARDIOMEGALY WITH MILD VASCULAR CONGESTION. FAINT HAZY APPEARANCE OF BOTH LUNGS MAY REPRESENT EARLY PULMONARY EDEMA. EKG: [ST] . SINUS TACHYCARDIA [LVHPRE] . PROBABLE LVH WITH SECONDARY REPOL ABNRM [AMI17] . ANTERIOR Q WAVES, POSSIBLY DUE TO LVH [REPPWI] . REPOL ABNRM, PROBABLE ISCHEMIA, DIFFUSE LEADS Critical Time Critical Time (minutes): 50 -: The care of a critically ill patient is dynamic. This note represents a static moment in the admission process. Orders and treatments may be given simultaneously and urgently, and time is not telephone service representative of the treatment process. This patient requires Critical Care secondary to life threatening organ or limb dysfunction. Without Critical Care services, the patient is at risk for increased mortality and morbidity. Provider Note Provider Note: Assessment: critically ill 68 yo man with septic shock, complicated UTI, obstructive uropathy, metastatic prostate cancer, h/o bilateral ureterl stents, IVONNE, CKD, hyperkalemia Plan: 1. Respiratory: stable on nasal cannula. Monitor respiratory status closely 2. CV: hypotension due to septic shock. Tachycardia. Will give more boluses of IVF. Will d/c dopamine and start neosynephrine 3. Renal/Uro: IVONNE, CKD, h/o obstructive uropathy s/p bilateral ureteral stents, prostate cancer. Continue IVF. CT abdomen and pelvis ordered. Hyperkalemia, treated in the ED. Repeat BMP. 4. ID: septic shock. Complicated UTI. Start cefepime. Cultures pending 5. Nutritioin: NPO 6. Endocrine: monitor blood sugars 7. Prophylaxis: scds. No heparin products due to heparin allergy. Arixtra contraindicated due to IVONNE 8. Family at bedside. Updated on pt condition and plan of care Critical care time = 50 min, excluding procedures
[2019-10-25] MEDS ORDERED: CEFEPIME 1 GM/D5W RTU 1 GM/50 ML RTUPB IV SCH (18:00)
[2019-10-25] MEDS ORDERED: IMIPENEM/CILASTATIN SODIUM 500 MG in NORMAL SALINE 100 ML IV SCH ×4 (18:00)
[2019-10-25] MEDS ORDERED: DOPAMINE HCL 800 MG/D5W 250 ML IV PRN (18:43)
--- NOTE | 2019-10-25 19:31 | RADIOLOGY REPORT (SQ) ---
EXAM DESCRIPTION: CT ABD/PELVIS NO ORAL OR IV COMPLETED DATE/TIME: 10/25/2019 7:01 pm REASON FOR STUDY: r/o pyelo, check of ureteral stents patency COMPARISON: None. TECHNIQUE: CT scan of the abdomen and pelvis performed without intravenous or oral contrast. Images reviewed with lung, soft tissue, and bone windows. Reconstructed coronal and sagittal MPR images revi ewed. All images stored on PACS. All CT scanners at this facility use dose modulation, iterative reconstruction, and/or weight based d osing when appropriate to reduce radiation dose to as low as reasonably achievable (ALARA). [facility]: Dose Right [facility]: CareDose [facility]: Dose Right [facility]: Teradose 4D [facility]: Smart Sleepy's RADIATION DOSE: CT Rad equipment meets quality standard of care and radiation dose reduction techniq ues were employed. CTDIvol: 10.4 mGy. DLP: 549 mGy-cm.mGy. LIMITATIONS: None. FINDINGS: LOWER CHEST: Interstitial thickening and ground-glass opacification. NON-CONTRASTED LIVER, SPLEEN, ADRENALS: Evaluation limited by lack of IV contrast. Hepatomegaly. At rophic pancreas. PANCREAS: No masses. No peripancreatic inflammatory changes. GALLBLADDER: Surgically absent. RIGHT KIDNEY AND URETER: No suspicious masses. Assessment limited by lack of IV contrast. No signif icant calcifications. Ureteral stent proximally located within the renal pelvis and distally located within the urinary bladder. Mild dilation of the renal pelvis. No hydroureter. Mild perinephric f at stranding, more so than the contralateral left side. LEFT KIDNEY AND URETER: Atrophic. No suspicious masses. Assessment limited by lack of IV contrast. No significant calcifications. Ureteral stent proximally located within the renal pelvis and distal ly located within the urinary bladder. No hydronephrosis or hydroureter. Mild perinephric fat stran ding. AORTA AND RETROPERITONEUM: Heavy calcified atherosclerosis. No aneurysm. No retroperitoneal masses o r adenopathy. BOWEL AND PERITONEAL CAVITY: 1.8 cm peripherally calcific mesenteric lesion within the anterior right lower abdomen, possibly representing a lymph node or sequela from prior inflammatory process. No ob vious inflammatory changes. No free fluid. APPENDIX: Surgically absent. PELVIS, BLADDER, AND ABDOMINAL WALL:No abnormal masses. No free fluid. Decompressed urinary bladder with Dacosta catheter placement. BONES: Metastatic sclerotic lesions throughout the axial skeleton within the proximal femurs. Pathol ogic fractures of the pubic rami. OTHER: Anasarca. Mildly prominent bilateral inguinal lymph nodes. IMPRESSION: Normal positioning of bilateral ureteral stents. Dilation of the right renal pelvis and mild asymmetrically increased right perinephric fat stranding, findings which may indicate a degree of ureteral stent obstruction. Perinephric fat stranding may also be seen with acute pyelonephritis, although evaluation is limited due to lack of intravenous contrast. Numerous osseous metastatic lesions with age-indeterminate pubic rami pathologic fractures. Bibasilar interstitial thickening and ground-glass opacification compatible with pulmonary edema. Anasarca. COMMENT: Quality ID # [id number]: Final reports with documentation of one or more dose reduction techniques (e.g., Automated exposure control, adjustment of the mA and/or kV according to patient size, use of iterative reconstruction technique) TECHNICAL DOCUMENTATION: JOB ID: [id number] [employer]- All Rights Reserved Reading location - IP/workstation name: [email or web address]
[2019-10-25] MEDS: DOCUSATE SODIUM 100 MG CAPSULE PO SCH (19:33)
[2019-10-25 20:29] LABS: ANION GAP 12 (5-19); BLOOD UREA NITROGEN 41 mg/dL (7-20); CARBON DIOXIDE 18 mmol/L (22-30); CHLORIDE 104 mmol/L (98-107); GLUCOSE 216 mg/dL (75-110); POTASSIUM 5.2 mmol/L (3.6-5.0)
[2019-10-25 20:43] LABS: CALCIUM 6.9 mg/dL (8.4-10.2)
[2019-10-25] MEDS: CEFEPIME 1 GM/D5W RTU 1 GM/50 ML RTUPB IV SCH (21:40)
[2019-10-25] MEDS ORDERED: FAMOTIDINE 20 MG TABLET PO SCH (22:00)
[2019-10-26] MEDS ORDERED: OXYCODONE HCL IR 5 MG TABLET PO PRN ×2 (00:20→08:07)
--- NOTE | 2019-10-26 00:21 | EKG REPORT ---
SEVERITY:- ABNORMAL ECG - ATRIAL-SENSED VENTRICULAR-PACED RHYTHM : Confirmed by: Yuliya Chauhan 26-Oct-2019 00:20:55
--- NOTE | 2019-10-26 00:21 | EKG REPORT ---
SEVERITY:- ABNORMAL ECG - SINUS TACHYCARDIA PROBABLE LVH WITH SECONDARY REPOL ABNRM ANTERIOR Q WAVES, POSSIBLY DUE TO LVH REPOL ABNRM, PROBABLE ISCHEMIA, DIFFUSE LEADS : Confirmed by: Yuliya Chauhan 26-Oct-2019 00:20:35
[2019-10-26] MEDS ORDERED: OXYCODONE HCL SR 10 MG TABLET PO ONE (01:15)
[2019-10-26] MEDS ORDERED: RINGERS SOLUTION,LACTATED 1,000 ML IV ONE (01:25)
[2019-10-26 04:30] LABS: ABSOLUTE BASOPHILS # (AUTO) 0.1 10^3/uL (0.0-0.2); ABSOLUTE MONOCYTES (AUTO) 0.9 10^3/uL (0.1-1.4); ABSOLUTE NEUT (AUTO) 13.7 10^3/uL (1.7-8.2); BASOPHILS % (AUTO) 0.4 % (0-2); HEMATOCRIT 24.1 % (37.9-51.0); LYMPHOCYTES % (AUTO) 6.1 % (13-45); MEAN CORPUSCULAR HEMOGLOBIN 26.8 pg (27.0-33.4); MEAN CORPUSCULAR HGB CONC 31.4 g/dL (32.0-36.0); MEAN CORPUSCULAR VOLUME 85 fl (80-97); MONOCYTES % (AUTO) 5.8 % (3-13); PLATELET COUNT 274 10^3/uL (150-450); RED BLOOD COUNT 2.83 10^6/uL (4.35-5.55); RED CELL DISTRIBUTION WIDTH 17.3 % (11.5-14.0); SEGMENTED NEUTROPHILS % (AUTO) 87.7 % (42-78); TOTAL CELLS COUNTED % (AUTO) 100 %; WHITE BLOOD COUNT 15.6 10^3/uL (4.0-10.5)
[2019-10-26 04:31] LABS: HEMOGLOBIN 7.6 g/dL (13.5-17.0)
[2019-10-26 04:38] LABS: INTERNATIONAL RATION (INR) 1.44; PROTHROMBIN TIME 17.7 SEC (11.4-15.4)
[2019-10-26 04:54] LABS: ALBUMIN 2.7 g/dL (3.5-5.0); ALKALINE PHOSPHATASE 191 U/L (38-126); ANION GAP 10 (5-19); ASPARTATE AMINO TRANSFERASE 46 U/L (17-59); BILIRUBIN,DIRECT 0.1 mg/dL (0.0-0.4); BILIRUBIN,TOTAL 0.2 mg/dL (0.2-1.3); BLOOD UREA NITROGEN 42 mg/dL (7-20); CARBON DIOXIDE 20 mmol/L (22-30); CHLORIDE 104 mmol/L (98-107); GLUCOSE 195 mg/dL (75-110); POTASSIUM 5.5 mmol/L (3.6-5.0); TOTAL PROTEIN 5.4 g/dL (6.3-8.2)
[2019-10-26] MEDS ORDERED: DIPHENHYDRAMINE HCL 25 MG CAPSULE PO PRN (05:00)
[2019-10-26] MEDS ORDERED: ACETAMINOPHEN 325 MG TABLET PO PRN (05:00)
[2019-10-26 05:11] LABS: CALCIUM 6.7 mg/dL (8.4-10.2)
--- NOTE | 2019-10-26 07:48 | PDOC CONSULTATION ---
Consultation Consult Date: 10/26/19 Attending physician:: OTILIO HERMOSILLO Provider Consulted: ELIO LORA Consult reason:: Patient with stage IV prostate cancer well-known to our oncology office History of Present Illness Admission Date/PCP: 10/25/19 13:15 KWAME RYAN MD Patient complains of: Weakness, dehydration History of Present Illness: MADI RAYMOND is a 68 year old male with known history of stage IV prostate cancer, recently transferred his care from Dr. Mensah who closed her office, he was found to have progressive disease over the last 1 month, rising PSA as well as increased bone disease. He had been on androgen deprivation therapy in the past but it been sometime since he received that therapy, we restarted about 2 weeks ago. He received a Lupron shot. He was supposed to start on the oral antiandrogen agent Xtandi, but unfortunately the co-pay was very high so we are trying to get him co-pay assistance. So he had not received the drug yet. He comes in with hypotension, weakness was found to have UTI, CT of the abdomen pelvis done which showed some perinephric stranding consistent with a pyelonephritis type picture, but the ureteral stents seem appropriate and in place. He was on pressors, thus he was given hydration in the ICU, he is doing better now, off pressors. But his hemoglobin dropped to 7.6. And his urine output was poor overnight. Past Medical History Cardiac Medical History: Reports: Congestive Heart Failure, Coronary Artery Disease, Myocardial Infarction - x3, Hypertension Pulmonary Medical History: Denies: Asthma, Bronchitis, Chronic Obstructive Pulmonary Disease (COPD), Pneumonia Neurological Medical History: Denies: Seizures Malignancy Medical History: Reports: Other - Stage IV prostate cancer GI Medical History: Denies: Hepatitis, Hiatal Hernia Musculoskeltal Medical History: Reports: Arthritis Hematology: Reports: Anemia Denies: Sickle Cell Disease Past Surgical History Past Surgical History: Reports: Pacemaker Social History Information Source: Patient Lives with: Spouse/Significant other Smoking Status: Unknown if Ever Smoked Electronic Cigarette use?: No Frequency of Alcohol Use: None Hx Recreational Drug Use: No Hx Prescription Drug Abuse: No - Advance Directive Resuscitation Status: Full Code Family History Family History: Reviewed & Not Pertinent Parental Family History Reviewed: Yes Children Family History Reviewed: Yes Sibling(s) Family History Reviewed.: Yes Medication/Allergy Home Medications: Cannabidiol (Cbd) [Epidiolex] 750 mg PO DAILY 10/25/19 Clopidogrel Bisulfate [Plavix 75 mg Tablet] 75 mg PO DAILY 10/25/19 Docusate Sodium [Stool Softener] 100 mg PO DAILY 10/25/19 Escitalopram Oxalate [Lexapro 10 mg Tablet] 10 mg PO DAILY 10/25/19 Metoprolol Succinate [Toprol Xl] 100 mg PO DAILY 10/25/19 Oxycodone HCl [Oxy-Ir 5 mg Tablet] 10 mg PO Q4HP PRN 10/25/19 Oxycodone HCl [Oxycontin Sr 10 mg Tablet] 10 mg PO Q12 10/25/19 Simvastatin 20 mg PO DAILY 10/25/19 Allergies/Adverse Reactions: Heparin Analogues [Heparin Agents] Allergy (Verified 10/25/19 15:03) unsure meperidine [From Demerol] Allergy (Verified 10/25/19 15:03) Review of Systems Constitutional: ABSENT: chills, fever(s), headache(s), weight gain, weight loss Eyes: ABSENT: visual disturbances Ears: ABSENT: hearing changes Cardiovascular: ABSENT: chest pain, dyspnea on exertion, edema, orthropnea, palpitations Respiratory: ABSENT: cough, hemoptysis Gastrointestinal: ABSENT: abdominal pain, constipation, diarrhea, hematemesis, hematochezia, nausea, vomiting Genitourinary: ABSENT: dysuria, hematuria Musculoskeletal: ABSENT: joint swelling Integumentary: ABSENT: rash, wounds Neurological: ABSENT: abnormal gait, abnormal speech, confusion, dizziness, focal weakness, syncope Psychiatric: ABSENT: anxiety, depression, homidical ideation, suicidal ideation Endocrine: ABSENT: cold intolerance, heat intolerance, polydipsia, polyuria Hematologic/Lymphatic: ABSENT: easy bleeding, easy bruising Physical Exam Vital Signs: Temp Pulse Resp BP Pulse Ox 98.3 F 78 12 113/51 L 100 10/26/19 04:00 10/25/19 18:12 10/26/19 06:12 10/26/19 06:12 10/26/19 06:12 Intake & Output 10/25/19 10/26/19 10/27/19 06:59 06:59 06:59 Intake Total 5837 Output Total 395 Balance 5442 Weight 79.1 kg General appearance: PRESENT: no acute distress, well-developed, well-nourished Head exam: PRESENT: atraumatic, normocephalic Eye exam: PRESENT: conjunctiva pink, EOMI, PERRLA. ABSENT: scleral icterus Ear exam: PRESENT: normal external ear exam Mouth exam: PRESENT: moist, tongue midline Neck exam: ABSENT: carotid bruit, JVD, lymphadenopathy, thyromegaly Respiratory exam: PRESENT: clear to auscultation riky. ABSENT: rales, rhonchi, wheezes Cardiovascular exam: PRESENT: RRR. ABSENT: diastolic murmur, rubs, systolic murmur Pulses: PRESENT: normal dorsalis pedis pul Vascular exam: PRESENT: normal capillary refill GI/Abdominal exam: PRESENT: normal bowel sounds, soft. ABSENT: distended, guarding, mass, organolmegaly, rebound, tenderness Rectal exam: PRESENT: deferred Extremities exam: PRESENT: full ROM. ABSENT: calf tenderness, clubbing, pedal edema Neurological exam: PRESENT: alert, awake, oriented to person, oriented to place, oriented to time, oriented to situation, CN II-XII grossly intact. ABSENT: motor sensory deficit Psychiatric exam: PRESENT: appropriate affect, normal mood. ABSENT: homicidal ideation, suicidal ideation Skin exam: PRESENT: dry, intact, warm. ABSENT: cyanosis, rash Results Laboratory Results: 10/26/19 03:53 10/26/19 03:53 10/25/19 10/25/19 10/25/19 10:14 10:14 10:14 WBC 13.0 H RBC 2.99 L Hgb 8.2 L Hct 25.4 L MCV 85 MCH 27.3 MCHC 32.1 RDW 17.5 H Plt Count 302 Seg Neutrophils % Not Reportable Sodium 131.2 L Potassium 6.1 H* Chloride 100 Carbon Dioxide 20 L Anion Gap 11 BUN 37 H Creatinine 2.53 H Est GFR ( Amer) 31 L Glucose 267 H Lactic Acid Calcium 6.9 L* Ionized Calcium Julius Magnesium 3.8 H Total Bilirubin 0.4 AST 37 Alkaline Phosphatase 241 H Total Protein 6.3 Albumin 3.1 L Urine Color Urine Appearance Urine pH Ur Specific [place] Urine Protein Urine Glucose (UA) Urine Ketones Urine Blood Urine Nitrite Ur Leukocyte Esterase Urine WBC (Auto) Urine RBC (Auto) 10/25/19 10/25/19 10/25/19 11:42 11:42 11:55 WBC RBC Hgb Hct MCV MCH MCHC RDW Plt Count Seg Neutrophils % Sodium Potassium Chloride Carbon Dioxide Anion Gap BUN Creatinine Est GFR ( Amer) Glucose Lactic Acid 1.4 Calcium Ionized Calcium Julius 0.98 L Magnesium Total Bilirubin AST Alkaline Phosphatase Total Protein Albumin Urine Color CARLEE Urine Appearance TURBID Urine pH 7.0 Ur Specific [place] 1.011 Urine Protein 100 H Urine Glucose (UA) 50 H Urine Ketones NEGATIVE Urine Blood LARGE H Urine Nitrite NEGATIVE Ur Leukocyte Esterase LARGE H Urine WBC (Auto) >182 Urine RBC (Auto) >182 10/25/19 10/25/19 10/26/19 19:51 19:51 03:53 WBC 15.6 H RBC 2.83 L Hgb 7.6 L Hct 24.1 L MCV 85 MCH 26.8 L MCHC 31.4 L RDW 17.3 H Plt Count 274 Seg Neutrophils % 87.7 H Sodium 133.7 L Potassium 5.2 H Chloride 104 Carbon Dioxide 18 L Anion Gap 12 BUN 41 H Creatinine 2.77 H Est GFR ( Amer) 28 L Glucose 216 H Lactic Acid Calcium 6.9 L* Ionized Calcium Julius Magnesium 3.4 H Total Bilirubin AST Alkaline Phosphatase Total Protein Albumin 2.5 L Urine Color Urine Appearance Urine pH Ur Specific [place] Urine Protein Urine Glucose (UA) Urine Ketones Urine Blood Urine Nitrite Ur Leukocyte Esterase Urine WBC (Auto) Urine RBC (Auto) 10/26/19 03:53 WBC RBC Hgb Hct MCV MCH MCHC RDW Plt Count Seg Neutrophils % Sodium 133.6 L Potassium 5.5 H Chloride 104 Carbon Dioxide 20 L Anion Gap 10 BUN 42 H Creatinine 3.01 H Est GFR ( Amer) 25 L Glucose 195 H Lactic Acid Calcium 6.7 L* Ionized Calcium Julius Magnesium 3.4 H Total Bilirubin 0.2 AST 46 Alkaline Phosphatase 191 H Total Protein 5.4 L Albumin 2.7 L Urine Color Urine Appearance Urine pH Ur Specific [place] Urine Protein Urine Glucose (UA) Urine Ketones Urine Blood Urine Nitrite Ur Leukocyte Esterase Urine WBC (Auto) Urine RBC (Auto) 10/25/19 10:14 NT-Pro-B Natriuret Pep 4150 H Impressions: Chest X-Ray 10/25/19 13:15 IMPRESSION: MILD CARDIOMEGALY WITH MILD VASCULAR CONGESTION. FAINT HAZY APPEARANCE OF BOTH LUNGS MAY REPRESENT EARLY PULMONARY EDEMA. Abdomen/Pelvis CT 10/25/19 18:20 IMPRESSION: Normal positioning of bilateral ureteral stents. Dilation of the right renal pelvis and mild asymmetrically increased right perinephric fat stranding, findings which may indicate a degree of ureteral stent obstruction. Perinephric fat stranding may also be seen with acute pyelonephritis, although evaluation is limited due to lack of intravenous contrast. Numerous osseous metastatic lesions with age-indeterminate pubic rami pathologic fractures. Bibasilar interstitial thickening and ground-glass opacification compatible with pulmonary edema. Anasarca. Status: Image reviewed by me Assessment & Plan - Diagnosis (1) Prostate cancer Is this a current diagnosis for this admission?: Yes Plan: Stage IV prostate cancer with bone metastasis, has sustained a left ankle fracture because of that, he is not able to bear weight because of that. He will continue on androgen deprivation therapy. Hopefully we will be able to get him Xtandi soon and he can start on that. (2) Anemia Qualifiers: Anemia type: other cause Other causes of anemia: chronic disease, neoplastic Qualified Code(s): D63.0 - Anemia in neoplastic disease Is this a current diagnosis for this admission?: Yes Plan: I will add iron studies to his labs. He seems intravascularly depleted so I will give him 1 unit of blood. But most likely this is an anemia of chronic disease. As he has an element of anemia of chronic kidney disease but also prostate cancer involvement in the pelvic bones causing anemia. (3) Pain, neoplasm-related Is this a current diagnosis for this admission?: Yes Plan: Related to bone metastasis, increase oxycodone and OxyContin. - Time Time Spent: Greater than 70 Minutes
[2019-10-26] MEDS ORDERED: FONDAPARINUX SODIUM INJ 2.5 MG/0.5 ML DISP.SYRIN SUBCUT SCH (08:00)
[2019-10-26] MEDS ORDERED: OXYCODONE HCL SR 10 MG TABLET PO PRN (08:08)
[2019-10-26] MEDS: IPRATROPIUM/ALBUTEROL 0.5-2.5 MG/3 ML AMPUL NEB SCH ×4 (08:41→20:18)
[2019-10-26 08:52] LABS: ABSOLUTE RETICS # 0.088 10^6/uL (0.028-0.122); RETICULOCYTE COUNT (AUTO) 3.08 % (0.66-2.85)
[2019-10-26] MEDS: INSULIN LISPRO 100 UNIT/ML 3 ML VIAL SUBCUT SCH ×4 (09:34→21:43)
[2019-10-26] MEDS: MEGESTROL ACETATE SUSP 400 MG/10 ML UDCUP PO SCH (09:35)
[2019-10-26] MEDS: CEFEPIME 1 GM/D5W RTU 1 GM/50 ML RTUPB IV SCH ×2 (09:36→21:45)
[2019-10-26] MEDS: DOCUSATE SODIUM 100 MG CAPSULE PO SCH ×2 (09:36→17:49)
[2019-10-26] MEDS ORDERED: DOCUSATE SODIUM 100 MG CAPSULE PO SCH (10:00)
[2019-10-26] MEDS ORDERED: CANNABIDIOL PO SCH (10:00)
[2019-10-26] MEDS ORDERED: OXYCODONE HCL SR 10 MG TABLET PO SCH (10:00)
[2019-10-26] MEDS ORDERED: CLOPIDOGREL BISULFATE 75 MG TABLET PO SCH (10:00)
[2019-10-26] MEDS ORDERED: INFLUENZA QUAD (6MOS+) 2019-20 VAC 0.5 ML SYR IM ONE (10:00)
[2019-10-26] MEDS ORDERED: (PENDING PHARMACY ID) (Simvastatin [Simvastatin] 20 MG) PO SCH (10:00)
[2019-10-26] MEDS: OXYCODONE HCL SR 10 MG TABLET PO SCH ×2 (12:01→21:44)
[2019-10-26] MEDS: METOPROLOL SUCCINATE 50 MG TAB.SR.24H PO SCH (12:01)
[2019-10-26] MEDS: ESCITALOPRAM OXALATE 10 MG TABLET PO SCH (12:01)
[2019-10-26] MEDS: OXYCODONE HCL IR 5 MG TABLET PO PRN (15:06)
[2019-10-26] MEDS ORDERED: CALCIUM GLUCONATE 1000 MG/10 ML INJ IV ONE (17:11)
--- NOTE | 2019-10-26 17:41 | PDOC PROGRESS REPORT ---
Subjective Progress Note for:: 10/26/19 Subjective:: MADI RAYMOND is a 68 year old male with past medical history of CAD, CHF status post pacemaker placement, hypertension, stage IV prostatic cancer diagnosed in January 2019, seen by Dr. Salinas as outpatient, obstructive uropathy due to complication of prostate cancer status post bilateral ureteral stent placement by Dr. Kruse at [facility], CKD seen by Dr. Hilton pattern hand, PCP Dr. Sandoval. Patient lives at home with his family and is doing intermittent catheterization at home for his obstructive uropathy, used to have Dacosta but removed it to improve his quality of life, patient is alert oriented x2 however seems to be very weak and preferred for his family to provide history. As per daughter and were present at the room patient has being having low appetite and refusing to eat or drink for the last 3 days and has been complaining of generalized weakness and malaise, today was seen to be well but confused and patient was brought to ED. Denies any shortness of breath, chest pain, abdominal pain, nausea, vomiting, diarrhea when asked if he is in pain he points to the right flank. In ED he was found to have leukocytosis and noted to have a positive UA. Was started on fluid resuscitation and consulted hospitalist. 10/26/2019. Yesterday evening after admission to floor patient was noted to become more hypotensive, executive administrator was consulted and patient was transferred to ICU for septic shock. In ICU he was pressors and weaned off this morning. Patient transferred to floor was able to see patient this afternoon comfortably resting in bed in no apparent distress, complaining of back and lower extremity pain, appetite has improved, alert and oriented and cooperative with physical examination. Denies any fever, chills, nausea, vomiting, diarrhea, abdominal pain or constipation. Reason For Visit: UTI,IVONNE,HYPOCALCEMIA,HYPERKALEMIA Physical Exam Vital Signs: Temp Pulse Resp BP Pulse Ox 97.9 F 70 16 120/53 L 99 10/26/19 17:00 10/26/19 17:00 10/26/19 17:00 10/26/19 17:00 10/26/19 17:00 Intake & Output 10/25/19 10/26/19 10/27/19 06:59 06:59 06:59 Intake Total 5837 806 Output Total 395 55 Balance 5442 751 Weight 79.1 kg General appearance: PRESENT: no acute distress, well-developed, well-nourished Head exam: PRESENT: atraumatic, normocephalic Respiratory exam: PRESENT: clear to auscultation riky. ABSENT: rales, rhonchi, wheezes Cardiovascular exam: PRESENT: RRR. ABSENT: diastolic murmur, rubs, systolic murmur GI/Abdominal exam: PRESENT: normal bowel sounds, soft. ABSENT: distended, guarding, mass, organolmegaly, rebound, tenderness Musculoskeletal exam: PRESENT: tenderness - Right lower extremity tenderness. Neurological exam: PRESENT: alert, awake, oriented to person, oriented to place, CN II-XII grossly intact. ABSENT: motor sensory deficit Skin exam: PRESENT: dry, intact, warm. ABSENT: cyanosis, rash Results Laboratory Results: 10/26/19 03:53 10/26/19 03:53 10/25/19 10/25/19 10/26/19 19:51 19:51 03:53 WBC 15.6 H RBC 2.83 L Hgb 7.6 L Hct 24.1 L MCV 85 MCH 26.8 L MCHC 31.4 L RDW 17.3 H Plt Count 274 Seg Neutrophils % 87.7 H Retic Count (auto) Sodium 133.7 L Potassium 5.2 H Chloride 104 Carbon Dioxide 18 L Anion Gap 12 BUN 41 H Creatinine 2.77 H Est GFR ( Amer) 28 L Glucose 216 H Calcium 6.9 L* Ionized Calcium Julius Magnesium 3.4 H Iron TIBC % Saturation Ferritin Total Bilirubin AST Alkaline Phosphatase Total Protein Albumin 2.5 L Vitamin B12 Folate Blood Type Antibody Screen 10/26/19 10/26/19 10/26/19 03:53 03:53 03:53 WBC RBC Hgb Hct MCV MCH MCHC RDW Plt Count Seg Neutrophils % Retic Count (auto) 3.08 H Sodium 133.6 L Potassium 5.5 H Chloride 104 Carbon Dioxide 20 L Anion Gap 10 BUN 42 H Creatinine 3.01 H Est GFR ( Amer) 25 L Glucose 195 H Calcium 6.7 L* Ionized Calcium Julius Magnesium 3.4 H Iron 16.0 L TIBC 188 L % Saturation 9 Ferritin 502.00 H Total Bilirubin 0.2 AST 46 Alkaline Phosphatase 191 H Total Protein 5.4 L Albumin 2.7 L Vitamin B12 > 1000.0 H Folate 10.70 Blood Type Antibody Screen 10/26/19 10/26/19 08:30 13:10 WBC RBC Hgb Hct MCV MCH MCHC RDW Plt Count Seg Neutrophils % Retic Count (auto) Sodium Potassium Chloride Carbon Dioxide Anion Gap BUN Creatinine Est GFR ( Amer) Glucose Calcium Ionized Calcium Julius 0.85 L Magnesium Iron TIBC % Saturation Ferritin Total Bilirubin AST Alkaline Phosphatase Total Protein Albumin Vitamin B12 Folate Blood Type B POSITIVE Antibody Screen NEGATIVE 10/25/19 11:42 Blood Blood Culture (PCR) - Final Escherichia Coli 10/25/19 12:40 Blood Blood Culture (PCR) - Final Escherichia Coli 10/25/19 10:14 NT-Pro-B Natriuret Pep 4150 H Impressions: Chest X-Ray 10/25/19 13:15 IMPRESSION: MILD CARDIOMEGALY WITH MILD VASCULAR CONGESTION. FAINT HAZY APPEARANCE OF BOTH LUNGS MAY REPRESENT EARLY PULMONARY EDEMA. Abdomen/Pelvis CT 10/25/19 18:20 IMPRESSION: Normal positioning of bilateral ureteral stents. Dilation of the right renal pelvis and mild asymmetrically increased right perinephric fat stranding, findings which may indicate a degree of ureteral stent obstruction. Perinephric fat stranding may also be seen with acute pyelonephritis, although evaluation is limited due to lack of intravenous contrast. Numerous osseous metastatic lesions with age-indeterminate pubic rami pathologic fractures. Bibasilar interstitial thickening and ground-glass opacification compatible with pulmonary edema. Anasarca. Assessment and Plan - Diagnosis (1) UTI (urinary tract infection) Qualifiers: Urinary tract infection type: site unspecified Hematuria presence: with hematuria Qualified Code(s): N39.0 - Urinary tract infection, site not specified; R31.9 - Hematuria, unspecified Is this a current diagnosis for this admission?: Yes Plan: Complicated UTI history of obstructive uropathy due to metastatic prostate cancer status post bilateral renal stent placement. CT abdomen pelvis positive for possible pyelonephritis. Urine culture from admission growing gram-negative rods. Pending sensitivity. Day 2 IV antibiotics. Day 1 IV cefepime. Received 1 day of IV ceftriaxone. Continue empiric IV antibiotics. Follow-up urine culture. Follow-up sensi tivity. (2) Septic shock Is this a current diagnosis for this admission?: Yes Plan: Resolved. Vitals WNL. Most likely likely due to gram-negative rods likely E. coli, likely source urine. Blood culture on admission growing non-ESBL E. coli pending sensitivity. Day 2 IV antibiotics. Day 1 IV cefepime. Received 1 day of IV ceftriaxone. Continue empiric IV antibiotics. Follow-up culture and sensitivity. Repeat blood culture. (3) Acute kidney injury superimposed on CKD Is this a current diagnosis for this admission?: Yes Plan: Nonoliguric. Urine output increasing. Combined pre-and post renal. Patient has been having low p.o. intake due to anorexia. CT abdomen shows patency of ureteral stents. No obstruction. Continue cautious volume resuscitation guided by volume status. Monitor electrolytes and replace as needed. Consult nephrology. (4) Obstructive uropathy Is this a current diagnosis for this admission?: Yes Plan: Complicated UTI history of obstructive uropathy due to metastatic prostate cancer status post bilateral renal stent placement. Managed by Dr. Kruse urologist at [facility]. CT abdomen and pelvis shows bilateral ureteral stents patent. Dacosta cath in place. Continue Dacosta care. Outpatient urology follow-up. (5) Prostate cancer Is this a current diagnosis for this admission?: Yes Plan: Stage IV prostate cancer. On chemo and radiation managed by Dr. Salinas as outpatient. (6) CAD (coronary artery disease) Qualifiers: Coronary Disease-Associated Artery/Lesion type: [place] artery Is this a current diagnosis for this admission?: Yes Plan: Denies any anginal symptoms. Restart home meds. Adjust meds as needed. Outpatient PCP and cardiology follow-up. (7) CHF (congestive heart failure) Qualifiers: Heart failure type: combined systolic and diastolic Heart failure chronicity: chronic Qualified Code(s): I50.42 - Chronic combined systolic (congestive) and diastolic (congestive) heart failure Is this a current diagnosis for this admission?: Yes Plan: Does not seem to be acutely exacerbated. Patient presenting with dehydration. Cardiac diet, monitor in and out, restart home meds. (8) Anorexia Is this a current diagnosis for this admission?: Yes Plan: Improving. Will start on metabolic oncology. Likely combination of IVONNE, metastatic cancer and chemotherapy. Encourage p.o. intake, will start on appetite stimulant. Monitor electrolytes and volume status. (9) Hypertension Is this a current diagnosis for this admission?: Yes Plan: Restart home meds. Adjust meds as needed. PRN IV hydralazine metoprolol. (10) Hyperkalemia Is this a current diagnosis for this admission?: Yes Plan: Likely due to IVONNE for CKD. Hyperkalemia protocol. No acute EKG changes. (11) Hypocalcemia Is this a current diagnosis for this admission?: Yes Plan: Replace as needed. Calcium level tomorrow.
[2019-10-26] MEDS ORDERED: SODIUM POLYSTYRENE SULFONATE 15 GM/60 ML PO ONE (18:00)
[2019-10-26] MEDS: CALCIUM GLUCONATE 1 GM/NS 50 ML RTU IV SCH ×2 (19:59→21:44)
[2019-10-26 21:22] LABS: HEMATOCRIT 27.8 % (37.9-51.0); HEMOGLOBIN 9.1 g/dL (13.5-17.0); MEAN CORPUSCULAR HEMOGLOBIN 27.6 pg (27.0-33.4); MEAN CORPUSCULAR HGB CONC 32.7 g/dL (32.0-36.0); MEAN CORPUSCULAR VOLUME 85 fl (80-97); PLATELET COUNT 244 10^3/uL (150-450); RED BLOOD COUNT 3.29 10^6/uL (4.35-5.55); RED CELL DISTRIBUTION WIDTH 17.4 % (11.5-14.0); WHITE BLOOD COUNT 14.7 10^3/uL (4.0-10.5)
[2019-10-26 21:23] LABS: ABSOLUTE LYMPHOCYTES (AUTO) 0.8 10^3/uL (0.5-4.7); ABSOLUTE MONOCYTES (AUTO) 0.9 10^3/uL (0.1-1.4); BASOPHILS % (AUTO) 0.2 % (0-2); EOSINOPHILS % (AUTO) 0.1 % (0-6); LYMPHOCYTES % (AUTO) 5.4 % (13-45); MONOCYTES % (AUTO) 6.2 % (3-13); SEGMENTED NEUTROPHILS % (AUTO) 88.1 % (42-78); TOTAL CELLS COUNTED % (AUTO) 100 %
[2019-10-26] MEDS: SIMVASTATIN 10 MG TABLET PO SCH (21:45)
[2019-10-26] MEDS: TEMAZEPAM 7.5 MG CAPSULE PO PRN (21:46)
[2019-10-27] MEDS: OXYCODONE HCL IR 5 MG TABLET PO PRN (06:08)
[2019-10-27 06:15] LABS: ABSOLUTE BASOPHILS # (AUTO) 0.1 10^3/uL (0.0-0.2); ABSOLUTE LYMPHOCYTES (AUTO) 0.9 10^3/uL (0.5-4.7); ABSOLUTE NEUT (AUTO) 12.2 10^3/uL (1.7-8.2); BASOPHILS % (AUTO) 0.4 % (0-2); EOSINOPHILS % (AUTO) 0.1 % (0-6); HEMATOCRIT 26.5 % (37.9-51.0); HEMOGLOBIN 8.7 g/dL (13.5-17.0); LYMPHOCYTES % (AUTO) 6.1 % (13-45); MEAN CORPUSCULAR HEMOGLOBIN 27.5 pg (27.0-33.4); MEAN CORPUSCULAR HGB CONC 32.7 g/dL (32.0-36.0); MEAN CORPUSCULAR VOLUME 84 fl (80-97); MONOCYTES % (AUTO) 7.3 % (3-13); PLATELET COUNT 209 10^3/uL (150-450); RED BLOOD COUNT 3.15 10^6/uL (4.35-5.55); SEGMENTED NEUTROPHILS % (AUTO) 86.1 % (42-78); TOTAL CELLS COUNTED % (AUTO) 100 %; WHITE BLOOD COUNT 14.1 10^3/uL (4.0-10.5)
[2019-10-27 06:37] LABS: ALBUMIN 2.7 g/dL (3.5-5.0); ALKALINE PHOSPHATASE 178 U/L (38-126); ANION GAP 11 (5-19); ASPARTATE AMINO TRANSFERASE 40 U/L (17-59); BILIRUBIN,DIRECT 0.5 mg/dL (0.0-0.4); BILIRUBIN,TOTAL 0.5 mg/dL (0.2-1.3); BLOOD UREA NITROGEN 52 mg/dL (7-20); CARBON DIOXIDE 20 mmol/L (22-30); CHLORIDE 102 mmol/L (98-107); GLUCOSE 107 mg/dL (75-110); POTASSIUM 5.3 mmol/L (3.6-5.0); TOTAL PROTEIN 5.7 g/dL (6.3-8.2)
[2019-10-27 06:48] LABS: CALCIUM 6.6 mg/dL (8.4-10.2)
[2019-10-27] MEDS ORDERED: CALCIUM GLUCONATE 1 GM/NS 50 ML RTU IV ONE (07:00)
[2019-10-27] MEDS: INSULIN LISPRO 100 UNIT/ML 3 ML VIAL SUBCUT SCH ×4 (07:44→22:05)
[2019-10-27] MEDS: IPRATROPIUM/ALBUTEROL 0.5-2.5 MG/3 ML AMPUL NEB SCH ×4 (08:08→19:17)
--- NOTE | 2019-10-27 08:29 | PDOC PROGRESS REPORT ---
Subjective Progress Note for:: 10/27/19 Subjective:: Patient seems to be doing better, pain seems to be better controlled, unfortunately creatinine has increased and I had a long discussion with family who is at bedside today. Today spent 45 minutes in discussion. Reason For Visit: UTI,IVONNE,HYPOCALCEMIA,HYPERKALEMIA Physical Exam Vital Signs: Temp Pulse Resp BP Pulse Ox 97.9 F 68 18 117/50 L 97 10/26/19 23:36 10/26/19 23:36 10/26/19 23:36 10/26/19 23:36 10/26/19 23:36 Intake & Output 10/26/19 10/27/19 10/28/19 06:59 06:59 06:59 Intake Total 5837 2050 Output Total 395 655 Balance 5442 1395 Weight 79.1 kg 84.2 kg General appearance: PRESENT: no acute distress, well-developed, well-nourished Head exam: PRESENT: atraumatic, normocephalic Eye exam: PRESENT: conjunctiva pink, EOMI, PERRLA. ABSENT: scleral icterus Ear exam: PRESENT: normal external ear exam Mouth exam: PRESENT: moist, tongue midline Neck exam: ABSENT: carotid bruit, JVD, lymphadenopathy, thyromegaly Respiratory exam: PRESENT: clear to auscultation riky. ABSENT: rales, rhonchi, wheezes Cardiovascular exam: PRESENT: RRR. ABSENT: diastolic murmur, rubs, systolic murmur Pulses: PRESENT: normal dorsalis pedis pul Vascular exam: PRESENT: normal capillary refill GI/Abdominal exam: PRESENT: normal bowel sounds, soft. ABSENT: distended, guarding, mass, organolmegaly, rebound, tenderness Rectal exam: PRESENT: deferred Extremities exam: PRESENT: full ROM. ABSENT: calf tenderness, clubbing, pedal edema Neurological exam: PRESENT: alert, awake, oriented to person, oriented to place, oriented to time, oriented to situation, CN II-XII grossly intact. ABSENT: motor sensory deficit Psychiatric exam: PRESENT: appropriate affect, normal mood. ABSENT: homicidal ideation, suicidal ideation Skin exam: PRESENT: dry, intact, warm. ABSENT: cyanosis, rash Results Laboratory Results: 10/27/19 05:27 10/27/19 05:27 10/26/19 10/26/19 10/26/19 03:53 03:53 08:30 WBC RBC Hgb Hct MCV MCH MCHC RDW Plt Count Seg Neutrophils % Retic Count (auto) 3.08 H Sodium Potassium Chloride Carbon Dioxide Anion Gap BUN Creatinine Est GFR ( Amer) Glucose Calcium Ionized Calcium Julius Magnesium Iron 16.0 L TIBC 188 L % Saturation 9 Ferritin 502.00 H Total Bilirubin AST Alkaline Phosphatase Total Protein Albumin Vitamin B12 > 1000.0 H Folate 10.70 Blood Type B POSITIVE Antibody Screen NEGATIVE 10/26/19 10/26/19 10/27/19 13:10 20:43 05:27 WBC 14.7 H 14.1 H RBC 3.29 L 3.15 L Hgb 9.1 L 8.7 L Hct 27.8 L 26.5 L MCV 85 84 MCH 27.6 27.5 MCHC 32.7 32.7 RDW 17.4 H 17.0 H Plt Count 244 209 Seg Neutrophils % 88.1 H 86.1 H Retic Count (auto) Sodium Potassium Chloride Carbon Dioxide Anion Gap BUN Creatinine Est GFR ( Amer) Glucose Calcium Ionized Calcium Julius 0.85 L Magnesium Iron TIBC % Saturation Ferritin Total Bilirubin AST Alkaline Phosphatase Total Protein Albumin Vitamin B12 Folate Blood Type Antibody Screen 10/27/19 05:27 WBC RBC Hgb Hct MCV MCH MCHC RDW Plt Count Seg Neutrophils % Retic Count (auto) Sodium 133.4 L Potassium 5.3 H Chloride 102 Carbon Dioxide 20 L Anion Gap 11 BUN 52 H Creatinine 3.66 H Est GFR ( Amer) 20 L Glucose 107 Calcium 6.6 L* Ionized Calcium Julius Magnesium 3.3 H Iron TIBC % Saturation Ferritin Total Bilirubin 0.5 AST 40 Alkaline Phosphatase 178 H Total Protein 5.7 L Albumin 2.7 L Vitamin B12 Folate Blood Type Antibody Screen 10/25/19 11:42 Blood Blood Culture (PCR) - Final Escherichia Coli 10/25/19 12:40 Blood Blood Culture (PCR) - Final Escherichia Coli 10/25/19 10:14 NT-Pro-B Natriuret Pep 4150 H Impressions: Chest X-Ray 10/25/19 13:15 IMPRESSION: MILD CARDIOMEGALY WITH MILD VASCULAR CONGESTION. FAINT HAZY APPEARANCE OF BOTH LUNGS MAY REPRESENT EARLY PULMONARY EDEMA. Abdomen/Pelvis CT 10/25/19 18:20 IMPRESSION: Normal positioning of bilateral ureteral stents. Dilation of the right renal pelvis and mild asymmetrically increased right perinephric fat stra nding, findings which may indicate a degree of ureteral stent obstruction. Perinephric fat stranding may also be seen with acute pyelonephritis, although evaluation is limited due to lack of intravenous contrast. Numerous osseous metastatic lesions with age-indeterminate pubic rami pathologic fractures. Bibasilar interstitial thickening and ground-glass opacification compatible with pulmonary edema. Anasarca. Assessment & Plan - Diagnosis (1) Prostate cancer Is this a current diagnosis for this admission?: Yes Plan: Continue with current therapy, will follow. (2) Anemia Qualifiers: Anemia type: other cause Other causes of anemia: chronic disease, neoplastic Qualified Code(s): D63.0 - Anemia in neoplastic disease Is this a current diagnosis for this admission?: Yes Plan: Status post 1 unit packed red blood cell, will follow (3) Pain, neoplasm-related Is this a current diagnosis for this admission?: Yes Plan: Continue with current pain regimen - Time Time Spent with patient: 35 or more minutes
[2019-10-27] MEDS: METOPROLOL SUCCINATE 50 MG TAB.SR.24H PO SCH (09:30)
[2019-10-27] MEDS: ESCITALOPRAM OXALATE 10 MG TABLET PO SCH (09:30)
[2019-10-27] MEDS: DOCUSATE SODIUM 100 MG CAPSULE PO SCH ×2 (09:30→17:19)
[2019-10-27] MEDS: OXYCODONE HCL SR 10 MG TABLET PO SCH ×2 (09:30→22:36)
[2019-10-27] MEDS: CEFEPIME 1 GM/D5W RTU 1 GM/50 ML RTUPB IV SCH (09:31)
[2019-10-27] MEDS: MEGESTROL ACETATE SUSP 400 MG/10 ML UDCUP PO SCH (09:33)
[2019-10-27] MEDS: RINGERS SOLUTION,LACTATED 1,000 ML IV PRN ×2 (13:23→22:39)
--- NOTE | 2019-10-27 15:22 | PDOC PROGRESS REPORT ---
Subjective Progress Note for:: 10/27/19 Subjective:: No adverse events overnight. No new complaints. Vital signs been stable. He was wondering tonight if he can have his Plavix restarted since he is not going to be having surgery anytime in the near future. He has had good urine output through his Dacosta catheter. Said it really started picking out yesterday evening. Reason For Visit: UTI,IVONNE,HYPOCALCEMIA,HYPERKALEMIA Physical Exam Vital Signs: Temp Pulse Resp BP Pulse Ox 98.8 F 81 17 118/55 L 95 10/27/19 11:31 10/27/19 11:31 10/27/19 11:31 10/27/19 11:31 10/27/19 11:31 Intake & Output 10/26/19 10/27/19 10/28/19 06:59 06:59 06:59 Intake Total 5837 2050 450 Output Total 395 655 Balance 5442 1395 450 Weight 79.1 kg 84.2 kg General appearance: PRESENT: no acute distress, well-developed, well-nourished Head exam: PRESENT: atraumatic, normocephalic Respiratory exam: PRESENT: clear to auscultation riky. ABSENT: rales, rhonchi, wheezes Cardiovascular exam: PRESENT: RRR. ABSENT: diastolic murmur, rubs, systolic murmur GI/Abdominal exam: PRESENT: normal bowel sounds, soft. ABSENT: distended, guarding, mass, organolmegaly, rebound, tenderness Musculoskeletal exam: PRESENT: tenderness - Right lower extremity tenderness, 1+ edema below the knee bilaterally. Neurological exam: PRESENT: alert, awake, oriented to person, oriented to place, CN II-XII grossly intact. ABSENT: motor sensory deficit Skin exam: PRESENT: dry, intact, warm. ABSENT: cyanosis, rash Results Laboratory Results: 10/27/19 05:27 10/27/19 05:27 10/26/19 10/27/19 10/27/19 20:43 05:27 05:27 WBC 14.7 H 14.1 H RBC 3.29 L 3.15 L Hgb 9.1 L 8.7 L Hct 27.8 L 26.5 L MCV 85 84 MCH 27.6 27.5 MCHC 32.7 32.7 RDW 17.4 H 17.0 H Plt Count 244 209 Seg Neutrophils % 88.1 H 86.1 H Sodium 133.4 L Potassium 5.3 H Chloride 102 Carbon Dioxide 20 L Anion Gap 11 BUN 52 H Creatinine 3.66 H Est GFR ( Amer) 20 L Glucose 107 Calcium 6.6 L* Magnesium 3.3 H Total Bilirubin 0.5 AST 40 Alkaline Phosphatase 178 H Total Protein 5.7 L Albumin 2.7 L 10/25/19 12:40 Blood Blood Culture (PCR) - Final Escherichia Coli 10/25/19 12:40 Blood Blood Culture - Final Escherichia Coli 10/25/19 11:42 Blood Blood Culture (PCR) - Final Escherichia Coli 10/25/19 11:42 Blood Blood Culture - Final Escherichia Coli 10/25/19 11:55 Catheterized Urine Urine Culture - Final Escherichia Coli 10/25/19 10:14 NT-Pro-B Natriuret Pep 4150 H Impressions: Chest X-Ray 10/25/19 13:15 IMPRESSION: MILD CARDIOMEGALY WITH MILD VASCULAR CONGESTION. FAINT HAZY APPEARANCE OF BOTH LUNGS MAY REPRESENT EARLY PULMONARY EDEMA. Abdomen/Pelvis CT 10/25/19 18:20 IMPRESSION: Normal positioning of bilateral ureteral stents. Dilation of the right renal pelvis and mild asymmetrically increased right perinephric fat stranding, findings which may indicate a degree of ureteral stent obstruction. Perinephric fat stranding may also be seen with acute pyelonephritis, although evaluation is limited due to lack of intravenous contrast. Numerous osseous metastatic lesions with age-indeterminate pubic rami pathologic fractures. Bibasilar interstitial thickening and ground-glass opacification compatible with pulmonary edema. Anasarca. Assessment and Plan - Diagnosis (1) Acute kidney injury superimposed on CKD Is this a current diagnosis for this admission?: Yes Plan: Nonoliguric. Urine output increasing. Combined pre-and post renal. Nephrology consulted. CT abdomen shows patency of ureteral stents. No obstruction. Continue cautious volume resuscitation guided by volume status. Monitor electrolytes and replace as needed. Dacosta catheter in place. (2) Anemia Qualifiers: Anemia type: other cause Other causes of anemia: chronic disease, neoplastic Qualified Code(s): D63.0 - Anemia in neoplastic disease Is this a current diagnosis for this admission?: Yes Plan: Due to chronic disease, will monitor closely. (3) Anorexia Is this a current diagnosis for this admission?: Yes Plan: This is resolved. He is now eating pretty well. (4) CAD (coronary artery disease) Qualifiers: Coronary Disease-Associated Artery/Lesion type: [place] artery Is this a current diagnosis for this admission?: Yes Plan: We will continue his home medications and resume his Plavix (5) Obstructive uropathy Is this a current diagnosis for this admission?: Yes Plan: Dacosta catheter in place (6) Prostate cancer Is this a current diagnosis for this admission?: Yes Plan: Oncology is following him in house (7) E coli bacteremia Is this a current diagnosis for this admission?: Yes Plan: Due to his urinary tract infection, continue antibiotics (8) Complicated UTI (urinary tract infection) Is this a current diagnosis for this admission?: Yes Plan: Due to some obstruction due to his prostate cancer, continue current antibiotics - Time Time Spent with patient: 15-24 minutes
[2019-10-27] MEDS ORDERED: CEFEPIME 1 GM/D5W RTU 1 GM/50 ML RTUPB IV SCH (22:00)
[2019-10-27] MEDS: SIMVASTATIN 10 MG TABLET PO SCH (22:36)
[2019-10-27] MEDS: TEMAZEPAM 7.5 MG CAPSULE PO PRN (22:36)
[2019-10-28] MEDS: INSULIN LISPRO 100 UNIT/ML 3 ML VIAL SUBCUT SCH ×3 (08:01→17:01)
[2019-10-28] MEDS: CLOPIDOGREL BISULFATE 75 MG TABLET PO SCH ×2 (08:02→09:49)
[2019-10-28] MEDS: IPRATROPIUM/ALBUTEROL 0.5-2.5 MG/3 ML AMPUL NEB SCH ×4 (08:13→20:28)
--- NOTE | 2019-10-28 08:19 | PDOC PROGRESS REPORT ---
Subjective Progress Note for:: 10/28/19 Subjective:: Feeling little better this morning, labs pending this morning Reason For Visit: UTI,IVONNE,HYPOCALCEMIA,HYPERKALEMIA Physical Exam Vital Signs: Temp Pulse Resp BP Pulse Ox 97.6 F 73 17 138/57 H 100 10/28/19 07:00 10/28/19 07:00 10/28/19 07:00 10/28/19 07:00 10/28/19 07:00 Intake & Output 10/27/19 10/28/19 10/29/19 06:59 06:59 06:59 Intake Total 2050 2475 Output Total 655 1925 Balance 1395 550 Weight 84.2 kg 84.2 kg General appearance: PRESENT: no acute distress, well-developed, well-nourished Head exam: PRESENT: atraumatic, normocephalic Eye exam: PRESENT: conjunctiva pink, EOMI, PERRLA. ABSENT: scleral icterus Ear exam: PRESENT: normal external ear exam Mouth exam: PRESENT: moist, tongue midline Neck exam: ABSENT: carotid bruit, JVD, lymphadenopathy, thyromegaly Respiratory exam: PRESENT: clear to auscultation riky. ABSENT: rales, rhonchi, w heezes Cardiovascular exam: PRESENT: RRR. ABSENT: diastolic murmur, rubs, systolic murmur Pulses: PRESENT: normal dorsalis pedis pul Vascular exam: PRESENT: normal capillary refill GI/Abdominal exam: PRESENT: normal bowel sounds, soft. ABSENT: distended, guarding, mass, organolmegaly, rebound, tenderness Rectal exam: PRESENT: deferred Extremities exam: PRESENT: full ROM. ABSENT: calf tenderness, clubbing, pedal edema Neurological exam: PRESENT: alert, awake, oriented to person, oriented to place, oriented to time, oriented to situation, CN II-XII grossly intact. ABSENT: motor sensory deficit Psychiatric exam: PRESENT: appropriate affect, normal mood. ABSENT: homicidal ideation, suicidal ideation Skin exam: PRESENT: dry, intact, warm. ABSENT: cyanosis, rash Results Laboratory Results: 10/27/19 05:27 10/27/19 05:27 10/25/19 19:51 Calcitonin 2.3 10/25/19 12:40 Blood Blood Culture (PCR) - Final Escherichia Coli 10/25/19 12:40 Blood Blood Culture - Final Escherichia Coli 10/25/19 11:42 Blood Blood Culture (PCR) - Final Escherichia Coli 10/25/19 11:42 Blood Blood Culture - Final Escherichia Coli 10/25/19 11:55 Catheterized Urine Urine Culture - Final Escherichia Coli 10/25/19 10:14 NT-Pro-B Natriuret Pep 4150 H Impressions: Chest X-Ray 10/25/19 13:15 IMPRESSION: MILD CARDIOMEGALY WITH MILD VASCULAR CONGESTION. FAINT HAZY APPEARANCE OF BOTH LUNGS MAY REPRESENT EARLY PULMONARY EDEMA. Abdomen/Pelvis CT 10/25/19 18:20 IMPRESSION: Normal positioning of bilateral ureteral stents. Dilation of the right renal pelvis and mild asymmetrically increased right perinephric fat stranding, findings which may indicate a degree of ureteral stent obstruction. Perinephric fat stranding may also be seen with acute pyelonephritis, although evaluation is limited due to lack of intravenous contrast. Numerous osseous metastatic lesions with age-indeterminate pubic rami pathologic fractures. Bibasilar interstitial thickening and ground-glass opacification compatible with pulmonary edema. Anasarca. Assessment & Plan - Diagnosis (1) Prostate cancer Is this a current diagnosis for this admission?: Yes Plan: Further treatment as an outpatient (2) Anemia Qualifiers: Anemia type: other cause Other causes of anemia: chronic disease, neoplastic Qualified Code(s): D63.0 - Anemia in neoplastic disease Is this a current diagnosis for this admission?: Yes Plan: Previous hemoglobin was stable awaiting labs (3) Pain, neoplasm-related Is this a current diagnosis for this admission?: Yes Plan: Continue with current pain control - Time Time Spent with patient: 15-24 minutes Disposition: We will follow peripherally - Inpatient Certification Based on my medical assessment, after consideration of the patient's comorbidities, presenting symptoms, or acuity I expect that the services needed warrant INPATIENT care.: Yes I certify that my determination is in accordance with my understanding of [employer] requirements for reasonable and necessary INPATIENT services [42 CFR 412.3e].: Yes
[2019-10-28] MEDS: RINGERS SOLUTION,LACTATED 1,000 ML IV PRN (09:07)
[2019-10-28] MEDS: ESCITALOPRAM OXALATE 10 MG TABLET PO SCH (09:58)
[2019-10-28] MEDS: DOCUSATE SODIUM 100 MG CAPSULE PO SCH ×2 (09:58→17:33)
[2019-10-28] MEDS: METOPROLOL SUCCINATE 50 MG TAB.SR.24H PO SCH (09:59)
[2019-10-28] MEDS: CEFEPIME 1 GM/D5W RTU 1 GM/50 ML RTUPB IV SCH (10:02)
[2019-10-28 10:06] LABS: ANION GAP 13 (5-19); BLOOD UREA NITROGEN 53 mg/dL (7-20); CARBON DIOXIDE 19 mmol/L (22-30); CHLORIDE 99 mmol/L (98-107); GLUCOSE 117 mg/dL (75-110); POTASSIUM 4.3 mmol/L (3.6-5.0)
[2019-10-28 10:21] LABS: CALCIUM 6.4 mg/dL (8.4-10.2)
[2019-10-28] MEDS: MEGESTROL ACETATE SUSP 400 MG/10 ML UDCUP PO SCH (11:20)
[2019-10-28] MEDS: CALCIUM GLUC IN NACL, ISO-OSM 1 GM/50 ML RTUPB IV SCH ×2 (12:18→13:11)
--- NOTE | 2019-10-28 12:42 | PDOC CONSULTATION ---
Consultation Consult Date: 10/28/19 Provider Consulted: Geo XIE Consult reason:: IVONNE on CKD History of Present Illness Admission Date/PCP: 10/25/19 13:15 KWAME RYAN MD History of Present Illness: MADI RAYMOND is a 68 year old male with past medical history of CKD stage III with a base creatinine of 1.7-2 after having an IVONNE with a creatinine of around 7+ in December 2018 secondary to obstructive uropathy, CAD, CHF status post pacemaker placement, hypertension, stage IV prostatic cancer diagnosed in January 2019, seen by Dr. Salinas as outpatient, obstructive uropathy due to complic ation of prostate cancer status post bilateral ureteral stent placement by Dr. Kruse at [facility] in 2018 and being changed q 3monthly.Apparently his ureteral stents have not been exchanged for around 4 months and more because of certain other issues that is ongoing with the patient as per his and daughter by the bedside. Patient was brought into the hospital by his family because of progressive weakness, poor intake for 3 to 4 days and progressive alteration of his mental status. Found to have UTI followed by a non contrasted CT scan that shows mild fullness of his right pelvis with some divina nephric stranding and retained bilateral ureteral stents likely suggestive of pyelonephritis. He was begun on antibiotics.Soon after that patient went into septic shock and had to be tra nsferred to the ICU and begun on pressors. He has recovered from that and is back on the floor. Currently his and daughter by the bedside today suggested that he is wide awake alert and responding to questions appropriately. He has begun to eat and drink fluids better. He denies any history of chest pain or shortness of breath abdominal pains fever or chills. Labs and medications were reviewed. Labs shows early downtrending of his creatinine which had peak between 3.6. Past Medical History Cardiac Medical History: Reports: Coronary Artery Disease, Myocardial Infarction - x3 Pulmonary Medical History: Denies: Asthma, Bronchitis, Chronic Obstructive Pulmonary Disease (COPD), Pneumonia Neurological Medical History: Denies: Seizures Renal/ Medical History: Reports: Chronic Kidney Disease Stage III Malignancy Medical History: Reports: Pancreatic Cancer, Other - Stage IV prostate cancer GI Medical History: Denies: Hepatitis, Hiatal Hernia Musculoskeltal Medical History: Reports: Arthritis Past Surgical History Past Surgical History: Reports: Pacemaker Social History Lives with: Spouse/Significant other Smoking Status: Unknown if Ever Smoked Electronic Cigarette use?: No Frequency of Alcohol Use: None Hx Recreational Drug Use: No Hx Prescription Drug Abuse: No - Advance Directive Resuscitation Status: Full Code Family History Parental Family History Reviewed: Yes - Negative for ESRD Children Family History Reviewed: No Sibling(s) Family History Reviewed.: No Medication/Allergy Home Medications: Cannabidiol (Cbd) [Epidiolex] 750 mg PO DAILY 10/25/19 Clopidogrel Bisulfate [Plavix 75 mg Tablet] 75 mg PO DAILY 10/25/19 Docusate Sodium [Stool Softener] 100 mg PO DAILY 10/25/19 Escitalopram Oxalate [Lexapro 10 mg Tablet] 10 mg PO DAILY 10/25/19 Metoprolol Succinate [Toprol Xl] 100 mg PO DAILY 10/25/19 Oxycodone HCl [Oxy-Ir 5 mg Tablet] 10 mg PO Q4HP PRN 10/25/19 Oxycodone HCl [Oxycontin Sr 10 mg Tablet] 10 mg PO Q12 10/25/19 Simvastatin 20 mg PO DAILY 10/25/19 Allergies/Adverse Reactions: Heparin Analogues [Heparin Agents] Allergy (Verified 10/25/19 15:03) unsure meperidine [From Demerol] Allergy (Verified 10/25/19 15:03) Review of Systems Constitutional: PRESENT: fatigue, weakness. ABSENT: anorexia, chills, fever(s), headache(s), night sweats Nose, Mouth, and Throat: ABSENT: mouth pain, sore throat Cardiovascular: ABSENT: edema Respiratory: ABSENT: dyspnea, hemoptysis Gastrointestinal: ABSENT: abdominal pain, diarrhea, dysphagia, heartburn Integumentary: ABSENT: lesions, pruritus Neurological: PRESENT: memory loss. ABSENT: abnormal movements, abnormal speech, confusion, focal weakness, frequent falls Hematologic/Lymphatic: ABSENT: easy bruising, lymphadenopathy Physical Exam Vital Signs: Temp Pulse Resp BP Pulse Ox 98.4 F 72 18 136/61 H 99 10/28/19 11:00 10/28/19 11:00 10/28/19 11:00 10/28/19 11:00 10/28/19 11:00 Intake & Output 10/27/19 10/28/19 10/29/19 06:59 06:59 06:59 Intake Total 5960 2475 1290 Output Total 655 1925 Balance 7016 062 7154 Weight 84.2 kg 84.2 kg General appearance: PRESENT: no acute distress Eye exam: PRESENT: EOMI, PERRLA. ABSENT: scleral icterus Ear exam: PRESENT: normal external ear exam Mouth exam: ABSENT: moist Neck exam: ABSENT: lymphadenopathy, meningismus, tenderness, thyromegaly, tracheal deviation Respiratory exam: PRESENT: clear to auscultation riky, decreased breath sounds. ABSENT: crackles Cardiovascular exam: PRESENT: +S1, +S2 GI/Abdominal exam: PRESENT: normal bowel sounds, soft. ABSENT: organomegaly, tenderness Extremities exam: ABSENT: pedal edema Neurological exam: PRESENT: alert, awake, oriented to person, oriented to place Psychiatric exam: PRESENT: appropriate affect Skin exam: ABSENT: erythema, mottled, rash Results Laboratory Results: 10/27/19 05:27 10/28/19 09:11 10/25/19 10/28/19 19:51 09:11 Sodium 130.7 L Potassium 4.3 Chloride 99 Carbon Dioxide 19 L Anion Gap 13 BUN 53 H Creatinine 3.26 H Est GFR ( Amer) 23 L Glucose 117 H Calcium 6.4 L* Calcitonin 2.3 10/25/19 12:40 Blood Blood Culture (PCR) - Final Escherichia Coli 10/25/19 12:40 Blood Blood Culture - Final Escherichia Coli 10/25/19 11:42 Blood Blood Culture (PCR) - Final Escherichia Coli 10/25/19 11:42 Blood Blood Culture - Final Escherichia Coli 10/25/19 11:55 Catheterized Urine Urine Culture - Final Escherichia Coli 10/25/19 10:14 NT-Pro-B Natriuret Pep 4150 H Impressions: Chest X-Ray 10/25/19 13:15 IMPRESSION: MILD CARDIOMEGALY WITH MILD VASCULAR CONGESTION. FAINT HAZY APPEARANCE OF BOTH LUNGS MAY REPRESENT EARLY PULMONARY EDEMA. Abdomen/Pelvis CT 10/25/19 18:20 IMPRESSION: Normal positioning of bilateral ureteral stents. Dilation of the right renal pelvis and mild asymmetrically increased right perinephric fat stranding, findings which may indicate a degree of ureteral stent obstruction. Perinephric fat stranding may also be seen with acute pyelonephritis, although evaluation is limited due to lack of intravenous contrast. Numerous osseous metastatic lesions with age-indeterminate pubic rami pathologic fractures. Bibasilar interstitial thickening and ground-glass opacification compatible with pulmonary edema. Anasarca. Assessment & Plan - Diagnosis (1) Acute kidney injury superimposed on CKD Is this a current diagnosis for this admission?: Yes Plan: Patient is now recovering from acute septic shock from a right pyelonephritis. Patient responding to antibiotics and current management principles. Continue on the same. (2) Complicated UTI (urinary tract infection) Is this a current diagnosis for this admission?: Yes Plan: Right pyelonephritis. Has been treated appropriately with antibiotics. Grew E. coli. (3) Obstructive uropathy Is this a current diagnosis for this admission?: Yes Plan: For which he has had urological interventions done. He needs to follow-up with outpatient neurology and have his ureteral stents replaced. (4) Prostate cancer Is this a current diagnosis for this admission?: Yes Plan: Being treated by heme oncologist. (5) Septic shock Is this a current diagnosis for this admission?: Yes Plan: Currently recovered. Continue antibiotics per hospitalist
[2019-10-28] MEDS: MAGNESIUM HYDROXIDE SUSP 30 ML UDCUP PO PRN (16:35)
[2019-10-28] MEDS: OXYCODONE HCL SR 10 MG TABLET PO SCH ×3 (17:18→22:35)
[2019-10-28] MEDS: OXYCODONE HCL IR 5 MG TABLET PO PRN (17:27)
--- NOTE | 2019-10-28 17:46 | PDOC PROGRESS REPORT ---
Subjective Progress Note for:: 10/28/19 Subjective:: No adverse events overnight. No new complaints. Vital signs been stable. Had one episode of some blood-tinged sputum earlier but nothing since then. Continues to have good urine output. Reason For Visit: UTI,IVONNE,HYPOCALCEMIA,HYPERKALEMIA Physical Exam Vital Signs: Temp Pulse Resp BP Pulse Ox 98.4 F 72 18 136/61 H 99 10/28/19 11:00 10/28/19 11:00 10/28/19 11:00 10/28/19 11:00 10/28/19 11:00 Intake & Output 10/27/19 10/28/19 10/29/19 06:59 06:59 06:59 Intake Total 2050 2475 1290 Output Total 655 1925 Balance 0189 386 0974 Weight 84.2 kg 84.2 kg General appearance: PRESENT: no acute distress, well-developed, well-nourished Head exam: PRESENT: atraumatic, normocephalic Respiratory exam: PRESENT: clear to auscultation riky. ABSENT: rales, rhonchi, wheezes Cardiovascular exam: PRESENT: RRR. ABSENT: diastolic murmur, rubs, systolic murmur GI/Abdominal exam: PRESENT: normal bowel sounds, soft. ABSENT: distended, guarding, mass, organolmegaly, rebound, tenderness Musculoskeletal exam: PRESENT: tenderness - Right lower extremity tenderness, 1+ edema below the knee bilaterally. Neurological exam: PRESENT: alert, awake, oriented to person, oriented to place, CN II-XII grossly intact. ABSENT: motor sensory deficit Skin exam: PRESENT: dry, intact, warm. ABSENT: cyanosis, rash Results Laboratory Results: 10/27/19 05:27 10/28/19 09:11 10/28/19 09:11 Sodium 130.7 L Potassium 4.3 Chloride 99 Carbon Dioxide 19 L Anion Gap 13 BUN 53 H Creatinine 3.26 H Est GFR ( Amer) 23 L Glucose 117 H Calcium 6.4 L* 10/25/19 10:14 NT-Pro-B Natriuret Pep 4150 H Impressions: Chest X-Ray 10/25/19 13:15 IMPRESSION: MILD CARDIOMEGALY WITH MILD VASCULAR CONGESTION. FAINT HAZY APPEAR ANCE OF BOTH LUNGS MAY REPRESENT EARLY PULMONARY EDEMA. Abdomen/Pelvis CT 10/25/19 18:20 IMPRESSION: Normal positioning of bilateral ureteral stents. Dilation of the right renal pelvis and mild asymmetrically increased right perinephric fat stranding, findings which may indicate a degree of ureteral stent obstruction. Perinephric fat stranding may also be seen with acute pyelonephritis, although evaluation is limited due to lack of intravenous contrast. Numerous osseous metastatic lesions with age-indeterminate pubic rami pathologic fractures. Bibasilar interstitial thickening and ground-glass opacification compatible with pulmonary edema. Anasarca. Assessment and Plan - Diagnosis (1) Acute kidney injury superimposed on CKD Is this a current diagnosis for this admission?: Yes Plan: Creatinine improving with hydration, continues to have good urine output, continue IV fluids, nephrology consulted. (2) Anemia Qualifiers: Anemia type: other cause Other causes of anemia: chronic disease, neoplastic Qualified Code(s): D63.0 - Anemia in neoplastic disease Is this a current diagnosis for this admission?: Yes Plan: Due to chronic disease, will monitor closely. (3) Anorexia Is this a current diagnosis for this admission?: Yes Plan: This is resolved. He is now eating pretty well. (4) CAD (coronary artery disease) Qualifiers: Coronary Disease-Associated Artery/Lesion type: [place] artery Is this a current diagnosis for this admission?: Yes Plan: We will continue his home medications and resume his Plavix (5) Obstructive uropathy Is this a current diagnosis for this admission?: Yes Plan: Dacosta catheter in place, will likely need outpatient follow-up with urology. (6) Prostate cancer Is this a current diagnosis for this admission?: Yes Plan: Oncology is following him in house (7) E coli bacteremia Is this a current diagnosis for this admission?: Yes Plan: Due to his urinary tract infection, continue antibiotics (8) Complicated UTI (urinary tract infection) Is this a current diagnosis for this admission?: Yes Plan: Due to some obstruction due to his prostate cancer, continue current antibiotics, should be able to transition to an oral cephalosporin at discharge. - Time Time Spent with patient: 15-24 minutes
[2019-10-28] MEDS: TEMAZEPAM 7.5 MG CAPSULE PO PRN (22:35)
[2019-10-28] MEDS: SIMVASTATIN 10 MG TABLET PO SCH (22:35)
[2019-10-29] MEDS: INSULIN LISPRO 100 UNIT/ML 3 ML VIAL SUBCUT SCH ×5 (01:45→23:58)
[2019-10-29] MEDS: RINGERS SOLUTION,LACTATED 1,000 ML IV PRN ×2 (03:02→16:20)
[2019-10-29 09:14] LABS: ANION GAP 11 (5-19); BLOOD UREA NITROGEN 50 mg/dL (7-20); CARBON DIOXIDE 20 mmol/L (22-30); CHLORIDE 102 mmol/L (98-107); GLUCOSE 152 mg/dL (75-110); POTASSIUM 4.2 mmol/L (3.6-5.0)
[2019-10-29 09:25] LABS: CALCIUM 6.7 mg/dL (8.4-10.2)
[2019-10-29] MEDS: METOPROLOL SUCCINATE 50 MG TAB.SR.24H PO SCH (09:30)
[2019-10-29] MEDS: DOCUSATE SODIUM 100 MG CAPSULE PO SCH ×2 (09:30→17:17)
[2019-10-29] MEDS: ESCITALOPRAM OXALATE 10 MG TABLET PO SCH (09:30)
[2019-10-29] MEDS: MAGNESIUM HYDROXIDE SUSP 30 ML UDCUP PO PRN (09:30)
[2019-10-29] MEDS: CLOPIDOGREL BISULFATE 75 MG TABLET PO SCH (09:30)
[2019-10-29] MEDS: CEFEPIME 1 GM/D5W RTU 1 GM/50 ML RTUPB IV SCH (09:31)
[2019-10-29] MEDS: OXYCODONE HCL SR 10 MG TABLET PO SCH ×2 (09:35→22:33)
[2019-10-29] MEDS: MEGESTROL ACETATE SUSP 400 MG/10 ML UDCUP PO SCH (09:35)
[2019-10-29] MEDS ORDERED: CALCIUM GLUC IN NACL, ISO-OSM 1 GM/50 ML RTUPB IV ONE (11:30)
--- NOTE | 2019-10-29 12:29 | PDOC PROGRESS REPORT ---
Subjective Progress Note for:: 10/29/19 Reason For Visit: Patient continues to do well. He is wide awake alert and oriented. Good appetite without any history of nausea vomiting. No history of abdominal pains fever or chills. Dacosta catheter is draining good amounts of urine. Labs and medications were reviewed with the patient and his family that shows improving renal numbers. Patient's daughter has had a discussion with the urologist in [place] who is planning for out outpatient exchange of ureteral stents this coming Saturday. Physical Exam Vital Signs: Temp Pulse Resp BP Pulse Ox 98.5 F 75 16 164/67 H 98 10/29/19 07:23 10/29/19 07:23 10/29/19 07:23 10/29/19 07:23 10/29/19 07:23 Intake & Output 10/28/19 10/29/19 10/30/19 06:59 06:59 06:59 Intake Total 2475 3370 Output Total 1925 3100 Balance 550 270 Weight 84.2 kg 87.7 kg General appearance: PRESENT: no acute distress Respiratory exam: PRESENT: clear to auscultation riky. ABSENT: crackles Cardiovascular exam: PRESENT: +S1, +S2 GI/Abdominal exam: PRESENT: normal bowel sounds, soft. ABSENT: organomegaly, tenderness Extremities exam: ABSENT: pedal edema Neurological exam: PRESENT: alert, awake, oriented to person, oriented to place Psychiatric exam: PRESENT: appropriate affect Results Laboratory Results: 10/27/19 05:27 10/29/19 08:16 10/29/19 08:16 Sodium 132.8 L Potassium 4.2 Chloride 102 Carbon Dioxide 20 L Anion Gap 11 BUN 50 H Creatinine 2.75 H Est GFR ( Amer) 28 L Glucose 152 H Calcium 6.7 L* 10/25/19 10:14 NT-Pro-B Natriuret Pep 4150 H Impressions: Chest X-Ray 10/25/19 13:15 IMPRESSION: MILD CARDIOMEGALY WITH MILD VASCULAR CONGESTION. FAINT HAZY APPEARANCE OF BOTH LUNGS MAY REPRESENT EARLY PULMONARY EDEMA. Abdomen/Pelvis CT 10/25/19 18:20 IMPRESSION: Normal positioning of bilateral ureteral stents. Dilation of the right renal pelvis and mild asymmetrically increased right perinephric fat stranding, findings which may indicate a degree of ureteral stent obstruction. Perinephric fat stranding may also be seen with acute pyelonephritis, although evaluation is limited due to lack of intravenous contrast. Numerous osseous metastatic lesions with age-indeterminate pubic rami pathologic fractures. Bibasilar interstitial thickening and ground-glass opacification compatible with pulmonary edema. Anasarca. Assessment & Plan - Diagnosis (1) Acute kidney injury superimposed on CKD Is this a current diagnosis for this admission?: Yes Plan: Nonoliguric. Patient is improving nicely. He is almost getting back to baseline renal numbers. From renal standpoint of view he can be discharged back home and he can follow-up with his urologist next week for ureteral stent exchange. Follow-up with primary commodity manager also in about 2 weeks time with labs. (2) Complicated UTI (urinary tract infection) Is this a current diagnosis for this admission?: Yes Plan: Much improved on current antibiotic regimen. His ureteral stent is indeed the focus of his infection and that needs to be exchanged for obvious reasons. Seeing urologist next week for the same. (3) Obstructive uropathy Is this a current diagnosis for this admission?: Yes Plan: Status quo now has a Dacosta catheter. Patient was doing intermittent I's and O's (4) Prostate cancer Is this a current diagnosis for this admission?: Yes Plan: As. Urologist/heme oncologist. (5) Septic shock Is this a current diagnosis for this admission?: Yes Plan: Resolved. Patient can go home on oral antibiotics. Needs to have ureteral stent exchange.
[2019-10-29] MEDS ORDERED: MAGNESIUM CITRATE 296 ML BOTTLE PO ONE (16:00)
--- NOTE | 2019-10-29 17:18 | PDOC PROGRESS REPORT ---
Subjective Progress Note for:: 10/29/19 Subjective:: No adverse events overnight. No new complaints. Pain is well controlled. Urine output continues to be good. Oral intake is good. He said that he is supposed to be back in [place] this coming Saturday to have his ureteral stents removed. He said they were supposed to be removed in August. Reason For Visit: UTI,IVONNE,HYPOCALCEMIA,HYPERKALEMIA Physical Exam Vital Signs: Temp Pulse Resp BP Pulse Ox 98.5 F 66 16 140/63 H 97 10/29/19 12:00 10/29/19 12:00 10/29/19 12:00 10/29/19 12:00 10/29/19 12:00 Intake & Output 10/28/19 10/29/19 10/30/19 06:59 06:59 06:59 Intake Total 2475 3370 1050 Output Total 1925 3100 Balance 047 166 8768 Weight 84.2 kg 87.7 kg General appearance: PRESENT: no acute distress, well-developed, well-nourished Head exam: PRESENT: atraumatic, normocephalic Respiratory exam: PRESENT: clear to auscultation riky. ABSENT: rales, rhonchi, wheezes Cardiovascular exam: PRESENT: RRR. ABSENT: diastolic murmur, rubs, systolic murmur GI/Abdominal exam: PRESENT: normal bowel sounds, soft. ABSENT: distended, guarding, mass, organolmegaly, rebound, tenderness Musculoskeletal exam: PRESENT: tenderness - Right lower extremity tenderness, 1+ edema below the knee bilaterally. Neurological exam: PRESENT: alert, awake, oriented to person, oriented to place, CN II-XII grossly intact. ABSENT: motor sensory deficit Skin exam: PRESENT: dry, intact, warm. ABSENT: cyanosis, rash Results Laboratory Results: 10/27/19 05:27 10/29/19 08:16 10/29/19 08:16 Sodium 132.8 L Potassium 4.2 Chloride 102 Carbon Dioxide 20 L Anion Gap 11 BUN 50 H Creatinine 2.75 H Est GFR ( Amer) 28 L Glucose 152 H Calcium 6.7 L* 10/25/19 10:14 NT-Pro-B Natriuret Pep 4150 H Impressions: Chest X-Ray 10/25/19 13:15 IMPRESSION: MILD CARDIOMEGALY WITH MILD VASCULAR CONGESTION. FAINT HAZY APPEARANCE OF BOTH LUNGS MAY REPRESENT EARLY PULMONARY EDEMA. Abdomen/Pelvis CT 10/25/19 18:20 IMPRESSION: Normal positioning of bilateral ureteral stents. Dilation of the right renal pelvis and mild asymmetrically increased right perinephric fat stranding, findings which may indicate a degree of ureteral stent obstruction. Perinephric fat stranding may also be seen with acute pyelonephritis, although evaluation is limited due to lack of intravenous contrast. Numerous osseous metastatic lesions with age-indeterminate pubic rami pathologic fractures. Bibasilar interstitial thickening and ground-glass opacification compatible with pulmonary edema. Anasarca. Assessment and Plan - Diagnosis (1) Acute kidney injury superimposed on CKD Is this a current diagnosis for this admission?: Yes Plan: Creatinine continues to trend down on IV fluids. Nephrology said that he is okay to go home on their standpoint. If his creatinine is continuing to trend down tomorrow, will probably let him go home at that point. (2) Anemia Qualifiers: Anemia type: other cause Other causes of anemia: chronic disease, neoplastic Qualified Code(s): D63.0 - Anemia in neoplastic disease Is this a current diagnosis for this admission?: Yes Plan: Due to chronic disease, will monitor closely. (3) Anorexia Is this a current diagnosis for this admission?: Yes Plan: This is resolved. He is now eating pretty well. (4) CAD (coronary artery disease) Qualifiers: Coronary Disease-Associated Artery/Lesion type: [place] artery Is this a current diagnosis for this admission?: Yes Plan: We will continue his home medications and resume his Plavix (5) Obstructive uropathy Is this a current diagnosis for this admission?: Yes Plan: Dacosta catheter in place, will probably leave this in place until he sees urology this coming Saturday when he has his ureteral stents removed and replaced.. (6) Prostate cancer Is this a current diagnosis for this admission?: Yes Plan: Oncology is following him in house (7) E coli bacteremia Is this a current diagnosis for this admission?: Yes Plan: Due to his urinary tract infection, continue antibiotics (8) Complicated UTI (urinary tract infection) Is this a current diagnosis for this admission?: Yes Plan: Due to some obstruction due to his prostate cancer, continue current antibiotics, should be able to transition to an oral cephalosporin at discharge. - Time Time Spent with patient: 15-24 minutes
[2019-10-29] MEDS: SIMVASTATIN 10 MG TABLET PO SCH (22:33)
[2019-10-30 05:35] LABS: ANION GAP 7 (5-19); BLOOD UREA NITROGEN 40 mg/dL (7-20); CARBON DIOXIDE 26 mmol/L (22-30); CHLORIDE 103 mmol/L (98-107); GLUCOSE 115 mg/dL (75-110); PHOSPHORUS 1.6 mg/dL (2.5-4.5)
[2019-10-30 05:44] LABS: POTASSIUM 5.2 mmol/L (3.6-5.0)
[2019-10-30 05:45] LABS: CALCIUM 6.6 mg/dL (8.4-10.2)
[2019-10-30] MEDS ORDERED: CALCIUM GLUCONATE 1 GM/NS 50 ML RTU IV ONE (06:00)
[2019-10-30] MEDS: RINGERS SOLUTION,LACTATED 1,000 ML IV PRN (06:29)
[2019-10-30] MEDS: INSULIN LISPRO 100 UNIT/ML 3 ML VIAL SUBCUT SCH ×2 (08:23→11:26)
[2019-10-30] MEDS: CEFEPIME 1 GM/D5W RTU 1 GM/50 ML RTUPB IV SCH (09:37)
[2019-10-30] MEDS: MEGESTROL ACETATE SUSP 400 MG/10 ML UDCUP PO SCH (09:39)
[2019-10-30] MEDS: CLOPIDOGREL BISULFATE 75 MG TABLET PO SCH (09:40)
[2019-10-30] MEDS: METOPROLOL SUCCINATE 50 MG TAB.SR.24H PO SCH (09:40)
[2019-10-30] MEDS: DOCUSATE SODIUM 100 MG CAPSULE PO SCH (09:40)
[2019-10-30] MEDS: ESCITALOPRAM OXALATE 10 MG TABLET PO SCH (09:40)
[2019-10-30] MEDS: OXYCODONE HCL SR 10 MG TABLET PO SCH (11:00)
[2019-10-30 12:01] VITALS: BP 145/63
--- NOTE | 2019-10-30 16:02 | PDOC DISCHARGE SUMMARY ---
Impression - Admit/DC Date/PCP Admission Date/Primary Care Provider: 10/25/19 13:15 KWAME RYAN MD Discharge Date: 10/30/19 - Discharge Diagnosis (1) Acute kidney injury superimposed on CKD Is this a current diagnosis for this admission?: Yes (2) Anemia Is this a current diagnosis for this admission?: Yes (3) Anorexia Is this a current diagnosis for this admission?: Yes (4) CAD (coronary artery disease) Is this a current diagnosis for this admission?: Yes (5) Obstructive uropathy Is this a current diagnosis for this admission?: Yes (6) Prostate cancer Is this a current diagnosis for this admission?: Yes (7) E coli bacteremia Is this a current diagnosis for this admission?: Yes (8) Complicated UTI (urinary tract infection) Is this a current diagnosis for this admission?: Yes - Additional Information Resuscitation Status: Full Code Discharge Diet: Cardiac Discharge Activity: Balance Activity w/Rest, Supervised Activity, Other Referrals: KWAME RYAN MD [Primary Care Provider] - 11/09/19 2:00 pm Prescriptions: Cephalexin [Cephalexin 500 MG Tablet] 1 tab PO TID #30 tablet Home Medications: Cannabidiol (Cbd) [Epidiolex] 750 mg PO DAILY 10/25/19 Clopidogrel Bisulfate [Plavix 75 mg Tablet] 75 mg PO DAILY 10/25/19 Docusate Sodium [Stool Softener] 100 mg PO DAILY 10/25/19 Escitalopram Oxalate [Lexapro 10 mg Tablet] 10 mg PO DAILY 10/25/19 Metoprolol Succinate [Toprol Xl] 100 mg PO DAILY 10/25/19 Oxycodone HCl [Oxy-Ir 5 mg Tablet] 10 mg PO Q4HP PRN 10/25/19 Oxycodone HCl [Oxycontin Sr 10 mg Tablet] 10 mg PO Q12 10/25/19 Simvastatin 20 mg PO DAILY 10/25/19 Cephalexin [Cephalexin 500 MG Tablet] 1 tab PO TID #30 tablet 10/30/19 History of Present Illiness History of Present Illness: MADI RAYMOND is a 68 year old male with metastatic prostate cancer who presents to the ED c/o a several day history of decreased oral intake. He has a h/o obstructive uropathy, s/p bilateral ureteral stents,and does intermittent self-catheterization. In the ED, he was found to be hypotensive with an SBP in the 70s. He was found to have a UTI, IVONNE, and hyperkalemia. He was treated for the hyperkalemia, given IVF, and started on ATBX. He was also started on dopamine. Upon my evaluation in the ED, he is tachycardic with a pulse in the 160s and has an SBP in the 120s on dopamine. He c/o nausea. His and children are at the bedside. Hospital Course Hospital Course: His kidneys responded to improvements in his blood pressure and IV fluids, along with treatment of his infection, which turned out to be an E. coli that was sensitive to cephalosporins and showed up in the urine and the blood. He has bilateral ureteral stents that were due to be changed back in August but for 1 reason or another was not able to be done. He has an appointment scheduled for a few days from now when he will get them changed out. His creatinine has trended to the back near his baseline, which is around 1.5. He was at 2.1 today. He has had good urine output. He has a Dacosta catheter which will stay in place until he follows up with urology in a few days. He will continue on Keflex for a total of 10 days which will complete treatment for a total of 15 days. He was eating and drinking without difficulty. His labs and examination were reassuring and he was discharged in stable condition. He also has pathological fractures of his left distal tibia and fibula and is ambulating with use of a knee scooter, and he has surgery pending for this as well, but he is got to make sure that the infection is cleared for his surgery on his leg. He understands this. Physical Exam Vital Signs: Temp Pulse Resp BP Pulse Ox 98.5 F 66 18 136/65 H 100 10/30/19 11:34 10/30/19 11:34 10/30/19 11:34 10/30/19 11:34 10/30/19 11:34 Intake & Output 10/29/19 10/30/19 10/31/19 06:59 06:59 06:59 Intake Total 3370 9678 50 Output Total 3100 3455 Balance 270 -947 50 Weight 87.7 kg 86.3 kg General appearance: PRESENT: no acute distress, well-developed, well-nourished Head exam: PRESENT: atraumatic, normocephalic Respiratory exam: PRESENT: clear to auscultation riky. ABSENT: rales, rhonchi, wheezes Cardiovascular exam: PRESENT: RRR. ABSENT: diastolic murmur, rubs, systolic murmur GI/Abdominal exam: PRESENT: normal bowel sounds, soft. ABSENT: distended, guarding, mass, organolmegaly, rebound, tenderness Musculoskeletal exam: PRESENT: tenderness - Right lower extremity tenderness, 1+ edema below the knee bilaterally. Neurological exam: PRESENT: alert, awake, oriented to person, oriented to place, CN II-XII grossly intact. ABSENT: motor sensory deficit Skin exam: PRESENT: dry, intact, warm. ABSENT: cyanosis, rash Results Laboratory Results: WBC 14.1 10^3/uL (4.0-10.5) H 10/27/19 05:27 RBC 3.15 10^6/uL (4.35-5.55) L 10/27/19 05:27 Hgb 8.7 g/dL (13.5-17.0) L 10/27/19 05:27 Hct 26.5 % (37.9-51.0) L 10/27/19 05:27 MCV 84 fl (80-97) 10/27/19 05:27 MCH 27.5 pg (27.0-33.4) 10/27/19 05:27 MCHC 32.7 g/dL (32.0-36.0) 10/27/19 05:27 RDW 17.0 % (11.5-14.0) H 10/27/19 05:27 Plt Count 209 10^3/uL (150-450) 10/27/19 05:27 Lymph % (Auto) 6.1 % (13-45) L 10/27/19 05:27 [place] % (Auto) 7.3 % (3-13) 10/27/19 05:27 Eos % (Auto) 0.1 % (0-6) 10/27/19 05:27 Baso % (Auto) 0.4 % (0-2) 10/27/19 05:27 Reticulocyte # 0.088 10^6/uL (0.028-0.122) 10/26/19 03:53 Absolute Neuts (auto) 12.2 10^3/uL (1.7-8.2) H 10/27/19 05:27 Absolute Lymphs (auto) 0.9 10^3/uL (0.5-4.7) 10/27/19 05:27 Absolute Monos (auto) 1.0 10^3/uL (0.1-1.4) 10/27/19 05:27 Absolute Eos (auto) 0.0 10^3/uL (0.0-0.6) 10/27/19 05:27 Absolute Basos (auto) 0.1 10^3/uL (0.0-0.2) 10/27/19 05:27 Total Counted 100 10/25/19 10:14 Seg Neutrophils % 86.1 % (42-78) H 10/27/19 05:27 Seg Neuts % (Manual) 91 % (42-78) H 10/25/19 10:14 Lymphocytes % (Manual) 5 % (13-45) L 10/25/19 10:14 Monocytes % (Manual) 4 % (3-13) 10/25/19 10:14 Eosinophils % (Manual) 0 % (0-6) 10/25/19 10:14 Basophils % (Manual) 0 % (0-2) 10/25/19 10:14 Abs Neuts (Manual) 11.8 10^3/uL (1.7-8.2) H 10/25/19 10:14 Abs Lymphs (Manual) 0.7 10^3/uL (0.5-4.7) 10/25/19 10:14 Abs Monocytes (Manual) 0.5 10^3/uL (0.1-1.4) 10/25/19 10:14 Absolute Eos (Manual) 0.0 10^3/uL (0.0-0.6) 10/25/19 10:14 Abs Basophils (Manual) 0.0 10^3/uL (0.0-0.2) 10/25/19 10:14 Large Platelets PRESENT 10/25/19 10:14 Platelet Comment ADEQUATE 10/25/19 10:14 Polychromasia SLIGHT 10/25/19 10:14 Poikilocytosis SLIGHT 10/25/19 10:14 Anisocytosis 1+ 10/25/19 10:14 Ovalocytes SLIGHT 10/25/19 10:14 Retic Count (auto) 3.08 % (0.66-2.85) H 10/26/19 03:53 PT 17.7 SEC (11.4-15.4) H 10/26/19 03:53 INR 1.44 10/26/19 03:53 Sodium 136.3 mmol/L (137-145) L 10/30/19 04:11 Potassium 5.2 mmol/L (3.6-5.0) H D 10/30/19 04:11 Chloride 103 mmol/L (98-107) 10/30/19 04:11 Carbon Dioxide 26 mmol/L (22-30) 10/30/19 04:11 Anion Gap 7 (5-19) 10/30/19 04:11 BUN 40 mg/dL (7-20) H 10/30/19 04:11 Creatinine 2.18 mg/dL (0.52-1.25) H 10/30/19 04:11 Est GFR ( Amer) 37 (>60) L 10/30/19 04:11 Est GFR (MDRD) Non-Af 30 (>60) L 10/30/19 04:11 Glucose 115 mg/dL (75-110) H 10/30/19 04:11 POC Glucose 154 mg/dL (70-110) H 10/30/19 10:49 Lactic Acid 1.4 mmol/L (0.7-2.1) 10/25/19 11:42 Calcium 6.6 mg/dL (8.4-10.2) L* 10/30/19 04:11 Ionized Calcium Julius 0.85 mmol/L (1.14-1.30) L 10/26/19 13:10 Phosphorus 1.6 mg/dL (2.5-4.5) L 10/30/19 04:11 Magnesium 3.6 mg/dL (1.6-2.3) H 10/30/19 04:11 Iron 16.0 ug/dL (49-181) L 10/26/19 03:53 TIBC 188 ug/dL (250-450) L 10/26/19 03:53 % Saturation 9 % 10/26/19 03:53 Ferritin 502.00 ng/mL (17.9-464.0) H 10/26/19 03:53 Total Bilirubin 0.5 mg/dL (0.2-1.3) 10/27/19 05:27 Direct Bilirubin 0.5 mg/dL (0.0-0.4) H 10/27/19 05:27 Neonat Total Bilirubin Not Reportable 10/27/19 05:27 Neonat Direct Bilirubin Not Reportable 10/27/19 05:27 Neonat Indirect Bili Not Reportable 10/27/19 05:27 AST 40 U/L (17-59) 10/27/19 05:27 ALT 14 U/L (<50) 10/27/19 05:27 Alkaline Phosphatase 178 U/L (38-126) H 10/27/19 05:27 NT-Pro-B Natriuret Pep 4150 pg/mL (<125) H 10/25/19 10:14 Total Protein 5.7 g/dL (6.3-8.2) L 10/27/19 05:27 Albumin 2.7 g/dL (3.5-5.0) L 10/27/19 05:27 Vitamin B12 > 1000.0 pg/mL (239-931) H 10/26/19 03:53 Folate 10.70 ng/mL (>2.76) 10/26/19 03:53 Calcitonin 2.3 pg/mL (0.0-8.4) 10/25/19 19:51 PTH Intact 356.7 pg/mL (10.0-65.0) H 10/30/19 04:11 Urine Color CARLEE 10/25/19 11:55 Urine Appearance TURBID 10/25/19 11:55 Urine pH 7.0 (5.0-9.0) 10/25/19 11:55 Ur Specific [place] 1.011 10/25/19 11:55 Urine Protein 100 mg/dL (NEGATIVE) H 10/25/19 11:55 Urine Glucose (UA) 50 mg/dL (NEGATIVE) H 10/25/19 11:55 Urine Ketones NEGATIVE mg/dL (NEGATIVE) 10/25/19 11:55 Urine Blood LARGE (NEGATIVE) H 10/25/19 11:55 Urine Nitrite NEGATIVE (NEGATIVE) 10/25/19 11:55 Urine Bilirubin NEGATIVE (NEGATIVE) 10/25/19 11:55 Urine Urobilinogen NEGATIVE mg/dL (<2.0) 10/25/19 11:55 Ur Leukocyte Esterase LARGE (NEGATIVE) H 10/25/19 11:55 Urine WBC (Auto) >182 /HPF 10/25/19 11:55 Urine RBC (Auto) >182 /HPF 10/25/19 11:55 Urine Bacteria (Auto) 3+ /HPF 10/25/19 11:55 Urine WBC Clumps MANY /HPF 10/25/19 11:55 Urine Mucus (Auto) RARE /LPF 10/25/19 11:55 Urine Ascorbic Acid 20 (NEGATIVE) H 10/25/19 11:55 Influenza A (Rapid) NEGATIVE (NEGATIVE) 10/25/19 15:51 Influenza B (Rapid) NEGATIVE (NEGATIVE) 10/25/19 15:51 Blood Type B POSITIVE 10/26/19 08:30 Blood Type Confirm B POSITIVE 10/26/19 09:26 Antibody Screen NEGATIVE 10/26/19 08:30 Crossmatch See Detail 10/26/19 08:30 10/25/19 10:14 NT-Pro-B Natriuret Pep 4150 H Impressions: Chest X-Ray 10/25/19 13:15 IMPRESSION: MILD CARDIOMEGALY WITH MILD VASCULAR CONGESTION. FAINT HAZY APPEARANCE OF BOTH LUNGS MAY REPRESENT EARLY PULMONARY EDEMA. Abdomen/Pelvis CT 10/25/19 18:20 IMPRESSION: Normal positioning of bilateral ureteral stents. Dilation of the right renal pelvis and mild asymmetrically increased right perinephric fat stranding, findings which may indicate a degree of ureteral stent obstruction. Perinephric fat stranding may also be seen with acute pyelonephritis, although evaluation is limited due to lack of intravenous contrast. Numerous osseous metastatic lesions with age-indeterminate pubic rami pathologic fractures. Bibasilar interstitial thickening and ground-glass opacification compatible with pulmonary edema. Anasarca. Plan Time Spent: Greater than 30 Minutes Stroke Is this a Stroke Patient?: No Acute Heart Failure - Is this a Heart Failure Patient?: No
== END 2019-10-30 12:05 | disposition home or self-care (01) | DRG 871 ==
LOC: ER 10:04 → EH 13:15 → ICU 19:04 → 4N 10-26 13:33
PROVIDERS: ADMIT Internal Medicine; ATTEND Internal Medicine
PROC: 30233N1 Transfusion of Nonautologous Red Blood Cells into Peripheral Vein, Percutaneous Approach (ICD-10-PCS; principal; 2019-10-26)
DX: A41.51 Sepsis due to Escherichia coli [E. coli] (principal); R65.21 Severe sepsis with septic shock; N17.9 Acute kidney failure, unspecified; I13.0 Hypertensive heart and chronic kidney disease with heart failure and stage 1 through stage 4 chronic kidney disease, or unspecified chronic kidney disease; M84.564A Pathological fracture in neoplastic disease, left fibula, initial encounter for fracture; M84.562A Pathological fracture in neoplastic disease, left tibia, initial encounter for fracture; I50.42 Chronic combined systolic (congestive) and diastolic (congestive) heart failure; N39.0 Urinary tract infection, site not specified; E83.51 Hypocalcemia; C61 Malignant neoplasm of prostate; N18.3 Chronic kidney disease, stage 3 (moderate); R63.0 Anorexia; I25.10 Atherosclerotic heart disease of native coronary artery without angina pectoris; N13.9 Obstructive and reflux uropathy, unspecified; E87.5 Hyperkalemia; M19.90 Unspecified osteoarthritis, unspecified site; D63.0 Anemia in neoplastic disease; G89.3 Neoplasm related pain (acute) (chronic); E86.0 Dehydration; Z95.0 Presence of cardiac pacemaker; I25.2 Old myocardial infarction; Z88.6 Allergy status to analgesic agent; Z88.8 Allergy status to other drugs, medicaments and biological substances; Z85.07 Personal history of malignant neoplasm of pancreas
CPT/HCPCS: 36415; 36430; 51701; 71045; 74176; 80048; 80053; 81001; 82040; 82308; 82330; 82607; 82728; 82746; 82962; 83540; 83550; 83605; 83735; 83880; 83970; 84100; 85025; 85045; 85610; 86850; 86900; 86901; 86920; 87040; 87077; 87086; 87088; 87150; 87186; 87804; 93005; 93010; 96361; 96365; 96375; 99291; J0610; J0692; J0696; J1265; J1815; J2405; J3490; J7030; J7120; J7620; P9016

== ENCOUNTER → 2019-11-09 | Outpatient (CLI) | payer MEDICARE, BC ==
--- NOTE | 2019-11-09 15:29 | RADIOLOGY REPORT (SQ) ---
EXAM DESCRIPTION: PELVIS AP COMPLETED DATE/TIME: 11/09/2019 11:20 am REASON FOR STUDY: SECONDARY MALIGNANT NEOPLASM OF BONE (C79.51) C79.51 SECONDARY MALIGNANT NEOPLASM OF BONE COMPARISON: None. NUMBER OF VIEWS: One view TECHNIQUE: AP Pelvis LIMITATIONS: None. FINDINGS: An AP image of the pelvis shows extensive metastatic disease in the lower pelvis and right hip. Metastatic disease is seen near the left sacroiliac joint. Cannot exclude pre-existing pathol ogical fractures involving the left superior pubic ramus in the right inferior pubic ramus. Bilatera l ureteral stents are present. IMPRESSION: Metastatic disease to bone with findings as described. COMMENT: Pelvic fractures are often occult on plain radiographs. If strong clinical suspicion for f racture, recommend CT or MR. TECHNICAL DOCUMENTATION: JOB ID: [id number] 2010 [employer]- All Rights Reserved Reading location - IP/workstation name: [email or web address]
--- NOTE | 2019-11-09 15:32 | RADIOLOGY REPORT (SQ) ---
EXAM DESCRIPTION: TIB FIB BILAT 2 VIEWS COMPLETED DATE/TIME: 11/09/2019 11:20 am REASON FOR STUDY: SECONDARY MALIGNANT NEOPLASM OF BONE (C79.51) C79.51 SECONDARY MALIGNANT NEOPLASM OF BONE COMPARISON: None. NUMBER OF VIEWS: Two views. TECHNIQUE: Two radiographic images acquired of the right and left tibia and fibula to include the kn ee and ankle in at least one projection. LIMITATIONS: None. FINDINGS: MINERALIZATION: Normal. BONES: Metastatic disease is suggested in the right tibia and fibula with no acute finding. On the l eft side. There is fracture of the distal fibula and a fracture of the distal tibia that are likely pathological. SOFT TISSUES: No obvious swelling or foreign body. OTHER: No other significant finding. IMPRESSION: Pathological fractures of the left fibula and tibia. Extensive metastatic disease to ney ne more prominent on the left. TECHNICAL DOCUMENTATION: JOB ID: [id number] 2010 [employer]- All Rights Reserved Reading location - IP/workstation name: [email or web address]
== END ==
LOC: RAD 10:37
PROVIDERS: ATTEND Radiology Radiation Oncology
DX: C79.51 Secondary malignant neoplasm of bone (principal); M84.464A Pathological fracture, left fibula, initial encounter for fracture; M84.462A Pathological fracture, left tibia, initial encounter for fracture; M84.461A Pathological fracture, right tibia, initial encounter for fracture; M84.463A Pathological fracture, right fibula, initial encounter for fracture
CPT/HCPCS: 72170

== ENCOUNTER 2019-11-17 09:22 | Outpatient (CLI) | payer MEDICARE, BC ==
[~2019-11-17 09:22] MED LIST: NORMAL SALINE 250 ML IV PRN
[2019-11-17 10:01] VITALS: BP 130/53
[2019-11-17] MEDS: CALCIUM GLUCONATE 1 GM/NS 50 ML RTU IV PRN ×2 (10:04→11:09)
== END 2019-11-17 12:34 | disposition home or self-care (01) ==
LOC: II 09:22 → 5TH 09:24 → II 12:34
PROVIDERS: ATTEND Internal Medicine
DX: E83.51 Hypocalcemia (principal)
CPT/HCPCS: 96365; 96366; J0610

== ENCOUNTER 2019-11-25 13:35 | Emergency (ER) | payer MEDICARE, BC ==
[~2019-11-25 13:35] MED LIST changes: +EPINEPHRINE INJ 1 MG/10 ML DISP.SYRIN ONE; +NOREPINEPHRINE BITARTRATE INJ/PF 4 MG/4 ML SDV IV ONE; -NORMAL SALINE 250 ML IV PRN
[2019-11-25] MEDS ORDERED: ETOMIDATE INJ/PF 20 MG/10 ML SDV IV ONE (14:16)
--- NOTE | 2019-11-25 14:50 | ER Document Report ---
ED General - General Chief Complaint: Chest Pain Stated Complaint: CHEST PAIN Time Seen by Provider: 11/25/19 14:00 Primary Care Provider: KWAME RYAN MD [Primary Care Provider] - Follow up as needed Notes: 69-year-old male with stage IV prostate cancer presents the emergency department shortly after having 14 teeth removed complaining of chest pain that is unrelieved by multiple doses of nitroglycerin at home. Family states that the patient stopped taking his Plavix approximately 1 to 2 weeks ago in order to have these dental extractions performed. Patient reports he was seen approximately a month ago for a urinary tract infection, states he has a suprapubic catheter and thinks he still has an infection. TRAVEL OUTSIDE OF THE [place] IN LAST 30 DAYS: No - Related Data Allergies/Adverse Reactions: Heparin Analogues [Heparin Agents] Allergy (Verified 10/25/19 15:03) unsure meperidine [From Demerol] Allergy (Verified 10/25/19 15:03) Past Medical History - General Information source: Relative, [facility] Records Cannot obtain history due to: Unstable vital signs - Social History Smoking Status: Unknown if Ever Smoked Family History: Reviewed & Not Pertinent - Past Medical History Cardiac Medical History: Reports: Hx Congestive Heart Failure, Hx Coronary Artery Disease, Hx Heart Attack - x3, Hx Hypertension Pulmonary Medical History: Denies: Hx Asthma, Hx Bronchitis, Hx COPD, Hx Pneumonia Neurological Medical History: Denies: Hx Cerebrovascular Accident, Hx Seizures Malignancy Medical History: Reports Hx Pancreatic Cancer, Reports Hx Prostate Cancer GI Medical History: Denies: Hx Hepatitis, Hx Hiatal Hernia, Hx Ulcer Musculoskeletal Medical History: Reports Hx Arthritis Infectious Medical History: Denies: Hx Hepatitis Past Surgical History: Reports: Hx Cardiac Surgery - Pacemaker, Hx Pacemaker. Denies: Hx Open Heart Surgery - Immunizations Hx Diphtheria, Pertussis, Tetanus Vaccination: Yes Review of Systems - Review of Systems -: Yes ROS unobtainable due to patient's medical condition - Patient stopped breathing as I walked in the room. Cardiovascular: Chest pain Physical Exam - Notes Notes: GENERAL: Unresponsive, apneic. HEAD: Normocephalic, atraumatic EYES: Pupils equal, round, unreactive, approximately 4 mm, do not react to light, no extraocular movements. No corneal reflex. ENT: Oral mucosa dry, tongue midline. Evidence of recent dental procedure with small amount of blood in the mouth and many bloody dental sockets. NECK: Full range of motion, supple, trachea midline. LUNGS: Apneic, respirations assisted with bag valve mask, lungs clear during assistance. HEART: Regular rate and rhythm, no murmurs, gallops, rubs. ABDOMEN: Soft, nondistended. EXTREMITIES: Does not withdraw from painful stimuli, no spontaneous movement. NEUROLOGICAL: GCS 3. SKIN: Warm and dry. Course - Re-evaluation Re-evalutation: 11/25/19 16:45 Patient was complaining of chest pain on arrival, EKG was obtained and patient was brought back to a room, as I was reviewing the EKG I was told the patient had just stopped breathing, we immediately started breathing for him with a bag valve mask, while we were breathing for him he then suffered cardiac arrest, pacemaker continued to pace his heart however there were no pulses palpated, CPR was started, during 1 pulse check patient was noted to be in ventricular tachycardia, patient was shocked and 1 epinephrine was given, CPR was resumed, patient then during pulse check appeared to be in torsades but before this could be medicated patient converted to a paced rhythm with pulses and spontaneous respirations. Epinephrine drip was started. Discussed with family the patient's medical history to include metastatic prostate cancer with no hope for cure or treatment. They stated the patient has a living will that states he would not want to be hooked up to machines or live on machines but he would like to be given "1 more shot." Discussed with family that currently without putting him on a ventilator he would not be able to protect his airway and he might stop breathing again however this would likely go against his wishes. Family agreed that having restarted his heart once was giving him 1 more shot and if his heart stopped again or if he stopped breathing again they would like him to be allowed to a natural . Patient's respirations then stopped, family entered the room and asked us to please stop giving artificial respirations with a bag valve mask. Patient then at 14:29. 11/25/19 16:50 - EKG Interpretation by Me Additional EKG results interpreted by me: 11/25/19 16:48 EKG shows ventricularly paced rhythm at a rate of 62, left bundle branch block, 1 PVC, no STEMI per my interpretation. Critical Care Note - Critical Care Note Total time excluding time spent on procedures (mins): 10 Comments: Rest of time was spent doing CPR. Discharge - Discharge Clinical Impression: Stage IV prostate cancer, Prostate cancer metastatic to bone, Cardiac arrest CAD (coronary artery disease) Qualifiers: Coronary Disease-Associated Artery/Lesion type: unspecified vessel or lesion type [place] vs. transplanted heart: rosebud heart Associated angina: with unstable angina Qualified Code(s): I25.110 - Atherosclerotic heart disease of [place] coronary artery with unstable angina pectoris Disposition: Referrals: KWAME RYAN MD [Primary Care Provider] - Follow up as needed
--- NOTE | 2019-11-25 18:41 | EKG REPORT ---
SEVERITY:- ABNORMAL ECG - VENTRICULAR-PACED COMPLEXES LEFT BUNDLE BRANCH BLOCK : Confirmed by: Jorge Najera MD 25-Nov-2019 18:40:08
== END 2019-11-25 14:29 | disposition expired ==
LOC: ER 13:35
DX: I46.9 Cardiac arrest, cause unspecified (principal); C61 Malignant neoplasm of prostate; C79.51 Secondary malignant neoplasm of bone; I25.110 Atherosclerotic heart disease of native coronary artery with unstable angina pectoris; R07.9 Chest pain, unspecified; I50.9 Heart failure, unspecified; I11.0 Hypertensive heart disease with heart failure; Z95.0 Presence of cardiac pacemaker
CPT/HCPCS: 93005; 99285; 93010; J0171; J3490